=== PATIENT | female | born 1950 | race Caucasian/White ===

== ENCOUNTER → 2022-07-17 11:23 | Outpatient (BNVA) | payer MEDICARE, SELFPAY | PROVIDERS: PCP Nurse Practitioner Family; Visit Provider Nurse Practitioner Family | DX: I48.91 Unspecified atrial fibrillation (principal); E11.9 Type 2 diabetes mellitus without complications; K59.00 Constipation, unspecified; F41.9 Anxiety disorder, unspecified; E78.5 Hyperlipidemia, unspecified; J43.9 Emphysema, unspecified; I25.10 Atherosclerotic heart disease of native coronary artery without angina pectoris; J45.909 Unspecified asthma, uncomplicated; R51.9 Headache, unspecified; G89.29 Other chronic pain | CPT/HCPCS: 80053; 80061; 80162; 82607; 82728; 82746; 83036; 83550 ==

== ENCOUNTER 2022-08-05 12:58 | Emergency (ER) | payer MEDICARE, SELFPAY ==
[2022-08-05 13:06] VITALS: BP 120/75; PULSE 76; RESP 16; TEMP 36.6; O2SAT 97; BMI 19.3
--- NOTE | 2022-08-05 13:35 | W.ED.AMS ---
HPI - Altered Mental Status General: Chief Complaint: Altered Mental Status Stated Complaint: AMS Time Seen by Provider: 08/05/22 13:15 Source: patient Mode of arrival: EMS Limitations: no limitations History of Present Illness: This patient was transported via EMS to the hospital because of some concern was she had transient decreased responsiveness. The patient provides her history. EMS report was that she seemed to not respond her granddaughter and EMS arrived and found her to be at her normal state of health. Has been so since there interaction with her. Patient reports to me that she woke this morning did not feel much like eating her granddaughter eventually made her way to her home sister today and she had just taken one of her butalbital which she takes for her chronic headaches. She states that she felt sleepy but denied any other symptoms such as weakness, difficulty with speech etc. She states her headaches have been chronic and been treated with opiates as well as other modalities such as Botox and she is currently getting a new injectable once a month prophylactic therapy which she says helped some in the first part of the month but then trails off towards the end of the month. She states that she has recently had body aches and subjective fevers and that her great grandchildren have been sick with some sort of a virus from daycare prior to her becoming ill. She denies any nausea vomiting or diarrhea. She has had a bowel movement for 3 to 4 days but also has not eaten much. She states that she has no abdominal pain currently. Timing confirmed by: family member Associated symptoms: Deny depression Review of Systems Const: Reports: fever(s), body aches and change in appetite Eyes: Denies: change in vision or blurry vision ENMT: Denies: throat pain, odynophagia, nasal discharge, nasal congestion or nasal obstruction Card: Denies: chest pain, palpitations, syncope or pre-syncope Resp: Denies: dyspnea, productive cough or non-productive cough GI: Denies: abdominal pain, nausea, vomiting or diarrhea : Denies: flank pain, difficulty voiding, dysuria or urinary frequency Musc: Denies: neck pain, back pain, extremity pain or extremity swelling Skin/Breast: Denies: rash or pruritus Neuro: Reports: headache(s); Denies: behavioral changes, Slurred speech present or seizure-like activity Psych: Reports: anxiety; Denies: depression or mood swings Endo: Denies: polyuria or polydipsia PFSH ED PFSH: Medical History Chronic headaches Chronic pain Depression with anxiety GERD (gastroesophageal reflux disease) Gout Heart failure Hx of deep venous thrombosis Hyperlipidemia Irregular heartbeat Muscle spasm Pacemaker Surgical History History of shoulder replacement Family History Other Cancer Diabetes Hypertension Social History Smoking and tobacco status: never smoked Physical Exam Narrative: The patient is alert, makes good eye contact speech is goal-directed and fluent. Const: COMMON NORMALS: no acute distress, patient oriented x3 and no limitations GENERAL APPEARANCE: cooperative and comfortable NUTRITIONAL APPEARANCE: thin HENMT: COMMON NORMALS: normocephalic, atraumatic, Normal nasal mucous membranes and turbinates present, moist oral mucous membranes and oropharynx normal HEAD & SCALP: normocephalic and atraumatic; no scalp tenderness FACE & SINUS: normal facial exam and face symmetric NOSE: Normal nasal mucous membranes and turbinates present Eye: COMMON NORMALS: Equal, round and reactive pupils present, EOMs intact bilaterally and conjunctivae normal CONJUNCTIVA: Yes conjunctivae normal PUPIL: Yes Equal, round and reactive pupils present Neck/C-Spine: COMMON NORMALS: no lymphadenopathy, supple, no meningeal signs, Thyroid normal and No carotid bruits THYROID: Thyroid normal CERVICAL SPINE: Yes cervical ROM normal Resp: COMMON NORMALS: normal respiratory effort, No use of accessory muscles and clear to auscultation bilaterally AUSCULTATION: clear to auscultation bilaterally Cardio: COMMON NORMALS: regular rate, No gallops present (Cardio), No murmurs present (Cardio) and Peripheral pulses 2+ throughout RATE: regular rate PERIPHERAL PULSES: Peripheral pulses 2+ throughout GI: COMMON NORMALS: Normal to inspection, nondistended, normoactive bowel sounds present, Soft to palpation, non-tender, No hepatosplenomegaly present and no masses PALPATION: Yes Soft to palpation and Yes No hepatosplenomegaly present Back/Pelvis: COMMON NORMALS: thoracic and lumbar spine normal to inspection, no thoracic nor lumbar tenderness, thoraco-lumbar ROM normal and straight leg raise negative bilaterally Extremity: COMMON NORMALS: normal to inspection, full ROM, no joint enlargement, no clubbing, cyanosis or edema, no calf tenderness and no pedal edema Neuro: COMMON NORMALS: patient oriented x3, moves all extremities, no focal motor deficits, no sensory deficits noted and deep tendon reflexes 2+ bilaterally MENINGEAL SIGNS: Yes no meningeal signs CRANIAL NERVES: Yes CN normal except as noted SPEECH: speech normal Psych: COMMON NORMALS: mental status grossly normal Skin: COMMON NORMALS: no rashes or lesions noted, no wounds and turgor normal GENERAL SKIN EXAM: no rashes or lesions noted and turgor normal Course Reevaluation(s): Reevaluation #1: Patient is eating and drinking. I discussed her current findings to include her chronic anemia. She states she has hadAnemia for as long as she can remember. She also relates that she had bone cancer although she cannot specifically tell me whether she had multiple myeloma or what type of bone cancer etc. her IV fluids are infusing and I would like her to continue to get remainder of this IV fluids as she is somewhat volume depleted clinically as well as biochemically. Still waiting influenza testing but at this point no evidence of other ongoing clinical conditions that would suggest a ongoing emergency medical condition. Time: 15:18 Reevaluation #2: Patient states she is feeling much better. She is expressing desire to be discharged from the hospital. No new focal findings on repeat examination. She is alert, eating, drinking, her ancillary studies are stable and consistent with previous studies. Time: 16:06 Vital Signs: Vital signs: Vital Signs Temperature 97.8 F 08/05/22 13:06 Pulse Rate 76 08/05/22 13:06 Respiratory Rate 16 08/05/22 13:06 Blood Pressure 120/75 08/05/22 13:06 Pulse Oximetry 97 08/05/22 13:06 Oxygen Delivery Me thod 08/05/22 13:06 MDM - Altered Mental Status Medical Decision Making This patient was transported to the emergency department because of possible concerns about alteration in her mental status alleged by family members. Her clinical examination while in the emergency department was very reassuring. She displayed normal cognition and no focal findings on neurologic examination. Her history has been remarkable and that she has had viral syndrome symptoms for the last several days. She has not eaten normally although she states she has been taking fluids. She apparently has had grand great-grandchildren who have had similar symptoms around the home for the last few days. She reports that today she took a few barbital for her chronic headache right before the time when her granddaughter came by and she thinks that she may have been tired and sleepy and also had dry mouth that attributed to her presentation at the time her granddaughter saw her. She had a nonfocal and reassuring clinical examination and her laboratories revealed her chronic anemia which is essentially unchanged. She did display some findings that suggested some volume depletion and received IV fluids in addition to oral nutrition. Her past history is well-documented in her past medical record and that is probably a contributing factor to her current presentation as well. He displayed nothing in the way of concerning findings while in the emergency department and was comfortable with going home and I felt this is a reasonable plan. She has ready access to family members who care for her she is clinically stable. Medical Records I reviewed the patient's medical records. Lab Data I reviewed the patient's lab results. : 08/05/22 14:00 08/05/22 14:00 Laboratory Results WBC 2.7 10^3/uL (4.0-10.0) L 08/05/22 14:00 RBC 2.54 10^6/uL (4.1-5.3) L 08/05/22 14:00 Hgb 8.8 g/dL (11.5-15.3) L 08/05/22 14:00 Hct 27.2 % (37.0-47.0) L 08/05/22 14:00 MCV 107.1 fl (81-99) H 08/05/22 14:00 MCH 34.6 pg (28.0-34.0) H 08/05/22 14:00 MCHC 32.4 g/dL (30.0-36.0) 08/05/22 14:00 RDW 12.6 % (12.1-15.1) 08/05/22 14:00 Plt Count 152 10^3/cmm (130-400) 08/05/22 14:00 MPV 9.8 fL (7.4-10.4) 08/05/22 14:00 Neut % (Auto) 72.7 % 08/05/22 14:00 Lymph % (Auto) 15.7 % 08/05/22 14:00 Glynn % (Auto) 10.8 % 08/05/22 14:00 Eos % (Auto) 0.0 % 08/05/22 14:00 Baso % (Auto) 0.4 % 08/05/22 14:00 Neut # (Auto) 1.95 10^3/uL (1.8-7.7) 08/05/22 14:00 Lymph # (Auto) 0.4 10^3/uL (0.8-4.8) L 08/05/22 14:00 Glynn # (Auto) 0.3 10^3/uL (0.2-0.9) 08/05/22 14:00 Eos # (Auto) 0.0 10^3/uL (0.0-0.8) 08/05/22 14:00 Baso # (Auto) 0.0 10^3/uL (0.0-0.1) 08/05/22 14:00 Nucleated RBC % (auto) 0 % 08/05/22 14:00 Nucleated RBCs # 0.0 /100WBC 08/05/22 14:00 Sodium 133 mmol/L (136-145) L 08/05/22 14:00 Potassium 4.0 mmol/L (3.5-5.1) 08/05/22 14:00 Chloride 95 mmol/L (98-107) L 08/05/22 14:00 Carbon Dioxide 29 mmol/L (22-29) 08/05/22 14:00 Anion Gap 13.0 (5-19) 08/05/22 14:00 BUN 28 mg/dL (8-23) H 08/05/22 14:00 Creatinine 1.3 mg/dL (0.5-0.9) H 08/05/22 14:00 GFR Calculation Not Reportable 08/05/22 14:00 Glucose 78 mg/dL (65-115) 08/05/22 14:00 Calculated Osmolality 280 mOsm/kg (285-295) L 08/05/22 14:00 Calcium 8.2 mg/dL (8.5-10.5) L 08/05/22 14:00 Total Bilirubin 0.5 mg/dL (0.15-1.2) 08/05/22 14:00 AST 19 U/L (0-32) 08/05/22 14:00 ALT 15 U/L (0-33) 08/05/22 14:00 Alkaline Phosphatase 86 U/L (35-105) 08/05/22 14:00 Total Protein 5.6 g/dL (6.6-8.7) L 08/05/22 14:00 Albumin 2.7 g/dL (3.5-5.2) L 08/05/22 14:00 Globulin 2.9 g/dL (1.3-4.6) 08/05/22 14:00 Influenza Type A Ag negative (Negative) 08/05/22 15:14 Influenza Type B Ag negative (Negative) 08/05/22 15:14 EKG Data EKG 1: I personally reviewed and interpreted this EKG as follows: Interpretation: Patient has a paced rhythm of 66 bpm. No other acute changes noted at this time. No prior tracings available for comparison. Discharge Plan Discharge Patient Disposition: Home Clinical Impression: Chronic headaches, Chronic anemia, Fluid volume depletion, Acute viral syndrome Condition: Stable Prescriptions: No Action oxycodone-acetaminophen 7.5-325 mg tablet 1 tab PO Q6H PRN amlodipine 10 mg tablet 10 mg PO DAILY 90 Days Qty: 90 1RF atorvastatin 20 mg tablet 20 mg PO DAILY 90 Days Qty: 90 1RF buspirone 10 mg tablet 10 mg PO BID 90 Days Qty: 180 1RF Qulipta 60 mg tablet 60 mg PO DAILY 90 Days Qty: 90 1RF Emgality Syringe 120 mg/mL syringe 120 mg SUBCUT .Qmonth 30 Days Qty: 1 3RF akzeaqohic-gtpejevmmypux-bqqp 50-325-40 mg tablet 1 tab PO Q4H PRN (Reason: pain) 30 Days Qty: 90 3RF Rx Instructions: 1 TABLET AT ONSET OF HEADACHE,MAY REPEAT IN 4 HOUR.NO MORE THE 2 DOSES 24 HOURS. carvedilol 25 mg tablet 25 mg PO Q12H 90 Days Qty: 180 1RF Rx Instructions: must administer with a meal/food clopidogrel 75 mg tablet 75 mg PO DAILY 90 Days Qty: 90 1RF colchicine 0.6 mg tablet 0.6 mg PO DAILY PRN (Reason: gout) Qty: 90 0RF digoxin 125 mcg (0.125 mg) tablet 125 mcg PO DAILY 90 Days Qty: 90 1RF diltiazem HCl 180 mg capsule,extended release 24 hr 180 mg PO DAILY 90 Days Qty: 90 1RF famotidine [Acid Risk Consultant (famotidine)] 20 mg tablet 20 mg PO BID 90 Days Qty: 180 1RF flecainide 50 mg tablet 50 mg PO Q12H 90 Days Qty: 180 1RF hydralazine 25 mg tablet 25 mg PO DAILY 90 Days Qty: 90 1RF methocarbamol 500 mg tablet 500 mg PO BID 90 Days Qty: 180 1RF nortriptyline 75 mg capsule 75 mg PO .HS 90 Days Qty: 90 1RF albuterol sulfate [Ventolin HFA] 90 mcg/actuation HFA aerosol inhaler 2 puff inhalation 6XD PRN (Reason: shortness of breath or wheezing) Qty: 8.5 6RF budesonide-formoterol [Symbicort] 160-4.5 mcg/actuation HFA aerosol inhaler 2 puff inhalation BID Qty: 10.2 6RF furosemide [Lasix] 20 mg tablet 20 mg PO QAM 90 Days Qty: 90 1RF spironolactone 25 mg tablet 25 mg PO DAILY 90 Days Qty: 90 1RF pantoprazole [Protonix] 40 mg tablet,delayed release (DR/EC) 40 mg PO DAILY 90 Days Qty: 90 1RF fluticasone propionate [Flonase Allergy Relief] 50 mcg/actuation spray,suspension 1 spray intranasal Q12H Qty: 16 3RF Rx Instructions: administer into each nostril Linzess 72 mcg capsule 72 mcg PO QAM 90 Days Qty: 90 1RF lidocaine 5 % adhesive patch,medicated 1 patch topical DAILY 30 Days Qty: 30 6RF Rx Instructions: leave on most painful area for up to 12 hrs (DME) ADMIT TO [facility] See Rx Instructions .Route .MEDSUPPLY Qty: 1 0RF Rx Instructions: REQUEST PER PT AND FAMILY ferrous sulfate 325 mg (65 mg iron) tablet 325 mg PO BID 90 Days Qty: 180 1RF Discharge Orders: Discharge ED (Routine); Ordered 08/05/22 Ordered By: Dwayne Hendrix Referrals: Steffany Barahona NP [Primary Care Provider] - Discharge Diet: Advance as tolerated Discharge Activity: Increase activity as tolerated Patient Instructions: Opioid Safety, Pain Management Activity Restrictions/Additional Instructions: Continue all your usual medications. Ensure you are drinking at least 2 quarts of fluids daily. Increase your intake of solid food as tolerated. Should you develop any chest pain, shortness of breath, nausea, vomiting, fevers, change in her headache, global weakness etc. return to this or the nearest emergency department. Coding Level of Care Code ED Conversion Developer for Zach Scott Exam Comprehensive
[2022-08-05 14:04] LABS: Basophils % 0.4 %; Hematocrit 27.2 % (37.0-47.0); Hemoglobin 8.8 g/dL (11.5-15.3); Lymphocytes # 0.4 10^3/uL (0.8-4.8); Lymphocytes % 15.7 %; Mean Corpuscular HGB Conc 32.4 g/dL (30.0-36.0); Mean Corpuscular Hemoglobin 34.6 pg (28.0-34.0); Mean Corpuscular Volume 107.1 fl (81-99); Mean Platelet Volume 9.8 fL (7.4-10.4); Monocytes # 0.3 10^3/uL (0.2-0.9); Monocytes % 10.8 %; Neutrophils # 1.95 10^3/uL (1.8-7.7); Neutrophils % 72.7 %; Nucleated Red Blood Cells % 0 %; Platelet Count 152 10^3/cmm (130-400); Red Blood Count 2.54 10^6/uL (4.1-5.3); Red Cell Distribution Width 12.6 % (12.1-15.1); White Blood Count 2.7 10^3/uL (4.0-10.0)
--- NOTE | 2022-08-05 14:16 | ECG_ITS ---
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 Measurements Intervals [place] Rate: 66 P: 254 GA: 338 QRS: 69 QRSD: 97 T: 69 QT: 368 QTc: 388 Interpretive Statements ELECTRONIC ATRIAL PACEMAKER NONSPECIFIC ST & T-WAVE ABNORMALITY ABNORMAL RHYTHM ECG No previous ECG available for comparison Electronically Signed On 08-05-2022 15:34:43 AGRICULTURE CONSULTANT by Rick Hernandez M.D. [email or web address] hospital.[employer]/store/[id number]
[2022-08-05 14:21] LABS: Alanine Aminotransferase 15 U/L (0-33); Albumin Level 2.7 g/dL (3.5-5.2); Alkaline Phosphatase 86 U/L (35-105); Aspartate Amino Transferase 19 U/L (0-32); Blood Urea Nitrogen 28 mg/dL (8-23); Calcium 8.2 mg/dL (8.5-10.5); Carbon Dioxide 29 mmol/L (22-29); Chloride 95 mmol/L (98-107); Globulin 2.9 g/dL (1.3-4.6); Glucose 78 mg/dL (65-115); Osmolality Calculated 280 mOsm/kg (285-295); Sodium 133 mmol/L (136-145); Total Bilirubin 0.5 mg/dL (0.15-1.2); Total Protein 5.6 g/dL (6.6-8.7)
[2022-08-05] MEDS: lactated ringers 1,000 ML 999 ML IV (14:26)
[2022-08-05 15:55] LABS: Influenza A by IFA negative (Negative); Influenza B by IFA negative (Negative)
== END 2022-08-05 17:52 | disposition home or self-care (01) ==
PROVIDERS: Emergency Provider Emergency Medicine; PCP Nurse Practitioner Family
DX: B34.9 Viral infection, unspecified (principal); E86.9 Volume depletion, unspecified; D64.89 Other specified anemias; R51.9 Headache, unspecified; Z79.02 Long term (current) use of antithrombotics/antiplatelets; I50.9 Heart failure, unspecified; E78.5 Hyperlipidemia, unspecified; Z95.0 Presence of cardiac pacemaker
CPT/HCPCS: 36415; 80053; 85025; 87804; 93005; 96360; 96361; 99284; J2060; J7120

== ENCOUNTER → 2022-08-10 12:50 | Outpatient (BNVA) | payer MEDICARE, SELFPAY | PROVIDERS: PCP Nurse Practitioner Family; Visit Provider Nurse Practitioner Family | DX: J06.9 Acute upper respiratory infection, unspecified (principal); I13.0 Hypertensive heart and chronic kidney disease with heart failure and stage 1 through stage 4 chronic kidney disease, or unspecified chronic kidney disease; N18.9 Chronic kidney disease, unspecified; I50.9 Heart failure, unspecified; G89.29 Other chronic pain; D63.1 Anemia in chronic kidney disease | CPT/HCPCS: 80053 ==

== ENCOUNTER 2022-08-21 13:48 | Inpatient (IN) | payer SELFPAY ==
[2022-08-21] VITALS (99 sets, daily range): BP systolic 68–171; BP diastolic 41–73; PULSE 56–74; RESP 14–18; TEMP 35; O2SAT 96–100
--- NOTE | 2022-08-21 13:52 | XR_ITS ---
WS: [id number] XR chest 1V portable [id number] REASON FOR EXAM: post code FINDINGS: Endotracheal tube tip about 1 cm superior to the aortic arch. Right subclavian central venous line with the tip in the distal SVC. Pacemaker place over the left chest with leads to the right atrium and right ventricular apex. The na sogastric tube is doubled upon itself in the body of the stomach. The heart is not significantly enlarged. There is no pneumothorax both lungs clear and well inflated. XR/XR chest 1V portable [id number] IMPRESSION: Post Covid chest x-ray with no acute cardiopulmonary abnormality. Devices are properly positioned. The nasogastric tube is in a redundant positio n and could be withdrawn 14 cm and remain within the stomach.
--- NOTE | 2022-08-21 13:53 | ECG_ITS ---
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 Measurements Intervals [place] Rate: 85 P: 251 [place]: 268 QRS: -86 QRSD: 110 T: 94 QT: 393 QTc: 468 Interpretive Statements 100% AV paced rhythm. Wide QRS complexes Consider electrolyte normalities /drug effect /ischemia further interpretation is not possible. Electronically Signed On 08-21-2022 14:54:49 POWER LINE LINEMAN by Rick Hernandez M.D. [email or web address] system [email or web address] [email or web address]/store/[id number] f
[2022-08-21 13:56] LABS: ABG PH Result 7.16 (7.35-7.45); Arterial Blood Gas Hematocrit 29.6 % (37-47); Blood Gas Allen Test Pos; Blood Gas Operator Identificat MONRO; Blood Gas Sample Site Brachial, right; Blood Gas Sample Type Arterial; HCO3 ABG 10.3 mmol/L (22-26); Oxygen Device AMBU
[2022-08-21] MEDS: sodium bicarbonate 8.4% 1 mEq/mL 50mL Syr 100 MEQ IVP (14:02)
[2022-08-21 14:26] LABS: Basophils % 0.2 %; Eosinophils % 0.1 %; Hematocrit 28.8 % (37.0-47.0); Hemoglobin 9.3 g/dL (11.5-15.3); Lymphocytes # 1.5 10^3/uL (0.8-4.8); Lymphocytes % 18.2 %; Mean Corpuscular HGB Conc 32.3 g/dL (30.0-36.0); Mean Corpuscular Hemoglobin 33.9 pg (28.0-34.0); Mean Corpuscular Volume 105.1 fl (81-99); Mean Platelet Volume 10.3 fL (7.4-10.4); Monocytes # 0.2 10^3/uL (0.2-0.9); Monocytes % 2.7 %; Neutrophils # 6.26 10^3/uL (1.8-7.7); Neutrophils % 76.8 %; Nucleated Red Blood Cells % 0 %; Platelet Count 83 10^3/cmm (130-400); Red Blood Count 2.74 10^6/uL (4.1-5.3); Red Cell Distribution Width 13.1 % (12.1-15.1); White Blood Count 8.2 10^3/uL (4.0-10.0)
--- NOTE | 2022-08-21 14:29 | PC.NURSE ---
daughter contacted, she is heading this way from [place].
[2022-08-21 14:38] LABS: INR 1.41 (0.8-1.2)
[2022-08-21 14:39] LABS: Partial Thromboplastin Time 48.2 SECONDS (23.9-36.7)
--- NOTE | 2022-08-21 14:44 | PC.PHAR ---
PT UNABLE TO VERIFY- PT IS A RESUSCITATION- DR SEBASTIAN ADVISED IT WAS OK TO DO EXTERNAL MED LIST LAST FILLED/DS
[2022-08-21 14:53] LABS: Lactate (Lactic Acid level) 12.2 mmol/L (0.5-2.2); Troponin(5th) Baseline 213 ng/L (0-10)
[2022-08-21 14:57] LABS: Alanine Aminotransferase 32 U/L (0-33); Albumin Level 2.1 g/dL (3.5-5.2); Alkaline Phosphatase 120 U/L (35-105); Anion Gap 28.4 (5-19); Blood Urea Nitrogen 44 mg/dL (8-23); Calcium 7.5 mg/dL (8.5-10.5); Carbon Dioxide 20 mmol/L (22-29); Chloride 93 mmol/L (98-107); Globulin 2.5 g/dL (1.3-4.6); Glucose 156 mg/dL (65-115); Magnesium 2.4 mg/dL (1.7-2.3); NT Pro B Type Natriuretic Pept 30517 pg/mL (0-125); Osmolality Calculated 298 mOsm/kg (285-295); Potassium 4.4 mmol/L (3.5-5.1); Sodium 137 mmol/L (136-145); Total Bilirubin 0.5 mg/dL (0.15-1.2); Total Protein 4.6 g/dL (6.6-8.7)
[2022-08-21] MEDS: sodium chloride 0.9% 1,000 ML 125 ML IV ×2 (14:58→18:35)
[2022-08-21] MEDS: propofol 1,000 MG/100 ML INJ 1.61 MG IV (15:00)
[2022-08-21 15:04] LABS: Aspartate Amino Transferase 65 U/L (0-32)
[2022-08-21 15:06] LABS: ABG PCO2 26.1 mmHg (35-45); ABG PH Result 7.48 (7.35-7.45); Alveolar-Arterial Oxygen Gradi 5.9 mmHg (5-10); Base Excess ABG -2.9 mmol/L (-2.0-2.0); Blood Gas Allen Test Pos; Blood Gas Operator Identificat CAK; Blood Gas Sample Site Brachial, left; Blood Gas Sample Type Arterial; Carboxyhemoglobin 0.9 %THgb (0.4-20.1); HCO3 ABG 19.6 mmol/L (22-26); HGB O2 Sat 98.3 % (95-100); Methemoglobin 1.1 % (0.4-1.5); Oxygen Device VENT; Oxygen Saturation ABG > 100.0; Potassium Level - ABG 4.5 mmol/L (3.5-5.0); Total Hemoglobin 9.5 g/dL (12-16)
--- NOTE | 2022-08-21 15:19 | W.ED.GENADLT ---
HPI - General Adult General: Chief complaint: Cardiac Arrest/CPR Stated complaint: cardiac arrest Time Seen by Provider: 08/21/22 13:51 Source: EMS Mode of arrival: EMS History of Present Illness: 72-year-old female presents emergency room from [facility]. Home health was assisting with a bath when she began to difficulty breathing became altered with slow heart rate. In EMS arrived heart rate was in the 40s she had a witnessed arrest while in the EMS truck. She went into V. fib CPR was started. Patient converted to V. tach and was defibrillated at 250 J CPR was resumed she was given 9 doses of epi and an IO had been started second defibrillation was at 200 J just prior to arrival. On arrival in the emergency room department patient was on automated compression device. When that was removed she was found to have a palpable pulse with ROSC. Initial systolic blood pressures were in the 180s she was nonresponsive. Onset (ago): minute(s) Treatments prior to arrival: other (ACLS protocols with 9 epi, 2 defibrillations 101 51-200) Review of Systems General: Reports: ROS unobtainable due to endotracheal tube PFSH ED PFSH: Medical History Chronic headaches Chronic pain Depression with anxiety GERD (gastroesophageal reflux disease) Gout Heart failure Hx of deep venous thrombosis Hyperlipidemia Irregular heartbeat Muscle spasm Pacemaker Surgical History History of shoulder replacement Family History Other Cancer Diabetes Hypertension Social History Smoking and tobacco status: never smoked Physical Exam HENMT: COMMON NORMALS: normocephalic, atraumatic and hearing grossly normal bilaterally HEAD & SCALP: normocephalic and atraumatic Resp: COMMON NORMALS: normal respiratory effort, No retractions, No use of accessory muscles and clear to auscultation bilaterally AUSCULTATION: clear to auscultation bilaterally Cardio: COMMON NORMALS: No murmurs present (Cardio) RATE: bradycardic GI: COMMON NORMALS: Soft to palpation and No hepatosplenomegaly present AUSCULTATION: Yes normoactive bowel sounds PALPATION: Yes Soft to palpation, No Tenderness to palpation present (GI), No Guarding due to palpation present (GI) and Yes No hepatosplenomegaly present Extremity: COMMON NORMALS: normal to inspection, capillary refill normal, no clubbing, cyanosis or edema, no calf tenderness and no pedal edema Skin: COMMON NORMALS: no rashes or lesions noted GENERAL SKIN EXAM: no rashes or lesions noted Procedures Central Line Placement Right SC: Time Out Performed: Yes MD Prep: mask, gown and gloves Central Line Prep: Chlorhexidine scrub Ultrasound Used for Placement: Yes Central Line Lumen Inserted: triple Post Procedure: sutured in place, good blood return, all ports aspirated, flushed, capped and sterile dressing applied Patient Tolerated Procedure: well Course Vital Signs: Vital signs: Vital Signs Pulse Rate 71 08/21/22 13:50 Respiratory Rate 14 08/21/22 15:23 Blood Pressure 171/73 08/21/22 13:50 Pulse Oximetry 96 08/21/22 13:50 Oxygen Delivery Me thod 08/21/22 13:50 Fraction of Inspir ed Oxygen 30 08/21/22 15:23 MDM - General Adult Medical Decision Making Patient brought in as cardiac arrest had ROSC on arrival here. Patient stabilized EKG shows paced rhythm chest x-ray done after placement of central line and OG all tubes are in good position. Family reports patient was exposed to COVID and flu just prior to this COVID and flu swabs have been done she has been started on Levophed we will admit to the ICU family wishes to continue to be a full code discussed with therapy orders written Medical Records I reviewed the patient's medical records. Lab Data I reviewed the patient's lab results. 08/21/22 14:10 08/21/22 14:10 Radiology Impressions Chest X-Ray 08/21/22 13:52 IMPRESSION: Post Covid chest x-ray with no acute cardiopulmonary abnormality. Devices are properly positioned. The nasogastric tube is in a redundant position and could be withdrawn 14 cm and remain within the stomach. Laboratory Results WBC 8.2 10^3/uL (4.0-10.0) 08/21/22 14:10 RBC 2.74 10^6/uL (4.1-5.3) L 08/21/22 14:10 Hgb 9.3 g/dL (11.5-15.3) L 08/21/22 14:10 Hct 28.8 % (37.0-47.0) L 08/21/22 14:10 MCV 105.1 fl (81-99) H 08/21/22 14:10 MCH 33.9 pg (28.0-34.0) 08/21/22 14:10 MCHC 32.3 g/dL (30.0-36.0) 08/21/22 14:10 RDW 13.1 % (12.1-15.1) 08/21/22 14:10 Plt Count 83 10^3/cmm (130-400) L 08/21/22 14:10 MPV 10.3 fL (7.4-10.4) 08/21/22 14:10 Neut % (Auto) 76.8 % 08/21/22 14:10 Lymph % (Auto) 18.2 % 08/21/22 14:10 Fannin % (Auto) 2.7 % 08/21/22 14:10 Eos % (Auto) 0.1 % 08/21/22 14:10 Baso % (Auto) 0.2 % 08/21/22 14:10 Neut # (Auto) 6.26 10^3/uL (1.8-7.7) 08/21/22 14:10 Lymph # (Auto) 1.5 10^3/uL (0.8-4.8) 08/21/22 14:10 Fannin # (Auto) 0.2 10^3/uL (0.2-0.9) 08/21/22 14:10 Eos # (Auto) 0.0 10^3/uL (0.0-0.8) 08/21/22 14:10 Baso # (Auto) 0.0 10^3/uL (0.0-0.1) 08/21/22 14:10 Nucleated RBC % (auto) 0 % 08/21/22 14:10 Nucleated RBCs # 0.0 /100WBC 08/21/22 14:10 PT 17.60 SECONDS (12.1-14.9) H 08/21/22 14:10 INR 1.41 (0.8-1.2) H 08/21/22 14:10 APTT 48.2 SECONDS (23.9-36.7) H 08/21/22 14:10 Specimen Type Arterial 08/21/22 14:55 Sample Site Brachial, left 08/21/22 14:55 ABG pH 7.48 (7.35-7.45) H 08/21/22 14:55 ABG pCO2 26.1 mmHg (35-45) L 08/21/22 14:55 ABG pO2 201.0 mmHg (80.0-100.0) H 08/21/22 14:55 ABG HCO3 19.6 mmol/L (22-26) L 08/21/22 14:55 ABG O2 Saturation > 100.0 08/21/22 14:55 ABG Base Excess -2.9 mmol/L (-2.0-2.0) L 08/21/22 14:55 Ovi Test Pos 08/21/22 14:55 A-a O2 Gradient 5.9 mmHg (5-10) 08/21/22 14:55 Hematocrit 29.0 % (37-47) L 08/21/22 14:55 Hgb O2 Saturation 98.3 % (95-100) 08/21/22 14:55 Carboxyhemoglobin 0.9 %THgb (0.4-20.1) 08/21/22 14:55 Methemoglobin 1.1 % (0.4-1.5) 08/21/22 14:55 Total Hemoglobin 9.5 g/dL (12-16) L 08/21/22 14:55 Sodium 137.0 mmol/L (131-143) 08/21/22 14:55 Potassium 4.5 mmol/L (3.5-5.0) 08/21/22 14:55 Glucose 160.0 mg/dL (70-115) H 08/21/22 14:55 Ionized Calcium 1.0 mmol/L (1.1-1.4) L 08/21/22 14:55 O2 Delivery Device Vent 08/21/22 14:55 O2 Liters/Min 15.0 % 08/21/22 13:43 FiO2 40.0 % 08/21/22 14:55 Tidal Volume 0.40 08/21/22 14:55 PEEP 5.0 cmH20 08/21/22 14:55 Document Improvement Specialist ID Cak 08/21/22 14:55 Sodium 137 mmol/L (136-145) 08/21/22 14:10 Potassium 4.4 mmol/L (3.5-5.1) 08/21/22 14:10 Chloride 93 mmol/L (98-107) L 08/21/22 14:10 Carbon Dioxide 20 mmol/L (22-29) L 08/21/22 14:10 Anion Gap 28.4 (5-19) H 08/21/22 14:10 BUN 44 mg/dL (8-23) H 08/21/22 14:10 Creatinine 2.0 mg/dL (0.5-0.9) H 08/21/22 14:10 GFR Calculation Not Reportable 08/21/22 14:10 Glucose 156 mg/dL (65-115) H 08/21/22 14:10 Calculated Osmolality 298 mOsm/kg (285-295) H 08/21/22 14:10 Lactate 12.2 mmol/L (0.5-2.2) H* 08/21/22 14:10 Calcium 7.5 mg/dL (8.5-10.5) L 08/21/22 14:10 Magnesium 2.4 mg/dL (1.7-2.3) H 08/21/22 14:10 Total Bilirubin 0.5 mg/dL (0.15-1.2) 08/21/22 14:10 AST 65 U/L (0-32) H 08/21/22 14:10 ALT 32 U/L (0-33) 08/21/22 14:10 Alkaline Phosphatase 120 U/L (35-105) H 08/21/22 14:10 Troponin T Baseline 213 ng/L (0-10) H* 08/21/22 14:10 NT-Pro-B Natriuret Pep 16696 pg/mL (0-125) H 08/21/22 14:10 Total Protein 4.6 g/dL (6.6-8.7) L 08/21/22 14:10 Albumin 2.1 g/dL (3.5-5.2) L 08/21/22 14:10 Globulin 2.5 g/dL (1.3-4.6) 08/21/22 14:10 Critical Care Time Critical Care Time: Critical Care Time: Yes Total Critical Care Time: 45 Attestation: The high probability of a clinically significant, sudden or life threatening deterioration of the patient's cardiovascular respiratory system(s) required my full and direct attention, intervention and personal management. The critical care time is as shown. This time is in addition to time spent performing any reported procedures but includes the following: [x] Data and vital sign review and interpretation [x] Patient assessment, examination and intervention [x] Documentation [x] Medication orders and management Discharge Plan Discharge Condition: Stable Prescriptions: No Action oxycodone-acetaminophen 7.5-325 mg tablet 1 tab PO Q6H PRN (Reason: Pain) amlodipine 10 mg tablet 10 mg PO DAILY 90 Days Qty: 90 1RF atorvastatin 20 mg tablet 20 mg PO DAILY 90 Days Qty: 90 1RF buspirone 10 mg tablet 10 mg PO BID 90 Days Qty: 180 1RF clopidogrel 75 mg tablet 75 mg PO DAILY 90 Days Qty: 90 1RF colchicine 0.6 mg tablet 0.6 mg PO DAILY PRN (Reason: gout) Qty: 90 0RF digoxin 125 mcg (0.125 mg) tablet 125 mcg PO DAILY 90 Days Qty: 90 1RF diltiazem HCl 180 mg capsule,extended release 24 hr 180 mg PO DAILY 90 Days Qty: 90 1RF famotidine [Acid Incident Engineer (famotidine)] 20 mg tablet 20 mg PO BID 90 Days Qty: 180 1RF flecainide 50 mg tablet 50 mg PO Q12H 90 Days Qty: 180 1RF hydralazine 25 mg tablet 25 mg PO DAILY 90 Days Qty: 90 1RF methocarbamol 500 mg tablet 500 mg PO BID 90 Days Qty: 180 1RF nortriptyline 75 mg capsule 75 mg PO .HS 90 Days Qty: 90 1RF albuterol sulfate [Ventolin HFA] 90 mcg/actuation HFA aerosol inhaler 2 puff inhalation 6XD PRN (Reason: shortness of breath or wheezing) Qty: 8.5 6RF budesonide-formoterol [Symbicort] 160-4.5 mcg/actuation HFA aerosol inhaler 2 puff inhalation BID Qty: 10.2 6RF furosemide [Lasix] 20 mg tablet 20 mg PO QAM 90 Days Qty: 90 1RF spironolactone 25 mg tablet 25 mg PO DAILY 90 Days Qty: 90 1RF pantoprazole [Protonix] 40 mg tablet,delayed release (DR/EC) 40 mg PO DAILY 90 Days Qty: 90 1RF fluticasone propionate [Flonase Allergy Relief] 50 mcg/actuation spray,suspension 1 spray intranasal Q12H Qty: 16 3RF Rx Instructions: administer into each nostril Linzess 72 mcg capsule 72 mcg PO QAM 90 Days Qty: 90 1RF gkjqgjofts-nwdzojissrkvr-kitb 50-325-40 mg tablet 1 tab PO Q4H PRN (Reason: pain) 30 Days Qty: 90 3RF Rx Instructions: 1 TABLET AT ONSET OF HEADACHE,MAY REPEAT IN 4 HOUR.NO MORE THE 2 DOSES 24 HOURS. carvedilol 25 mg tablet 25 mg PO Q12H 90 Days Qty: 180 1RF Rx Instructions: must administer with a meal/food tramadol 100 mg tablet 100 mg PO TID PRN (Reason: pain) 30 Days Qty: 90 0RF ferrous sulfate 325 mg (65 mg iron) tablet 325 mg PO BID 90 Days Qty: 180 1RF Emgality Pen 120 mg/mL pen injector 120 mg SUBCUT Q30D Referrals: Steffany Barahona NP [Primary Care Provider] - Coding Level of Care Code ED Air Route Traffic Controller for Chg Fwd Exam Detailed
[2022-08-21 15:48] LABS: Glucose Urine UA Norm (Normal); Ketones Urine 1+ (Negative); Protein Urine Neg (Negative); Urine Appearance Clear (CLEAR); Urine Color Yellow (Yellow); pH Urine 5 (5-7)
[2022-08-21 15:49] LABS: Add Urine Microscopic? YES; Bilirubin Urine 1+ (Negative); Blood Urine Neg (Negative); Leukocyte Esterase Urine 2+ (Negative); Nitrate Urine Negative (Negative); RBC Urine 0-4 /hpf (0-2); Urobilinogen Urine 1 mg/dL (Negative)
[2022-08-21 15:50] LABS: Add Urine Culture? Yes; Bacteria Urine 2+ /hpf; Hyaline Casts Urine 0-4 /lpf; Renal Epithelial Cells Urine 0-4 /hpf
--- NOTE | 2022-08-21 16:19 | CTR_ITS ---
PROCEDURE INFORMATION: Exam: CTA Chest With Contrast Exam date and time: 08/21/2022 4:58 PM Age: 72 years old Clinical indication: Other: S/P cardiac arrest; Additional info: Cardiac arrest, evaluate for pe TECHNIQUE: Imaging protocol: Computed tomographic angiography of the chest with contrast. 3D rendering (Not supervised by radiologist): MIP and/or 3D reconstructed images were created by the technologist. Radiation optimization: All CT scans at this facility use at least one of these dose optimization techniques: automated exposure control; mA and/or kV adjustment per patient size (includes targeted exams where dose is matched to clinical indication); or iterative reconstruction. Contrast material: OMNIPAQU; Contrast volume: 95 ml; Contrast route: INTRAVENOUS (IV); COMPARISON: CR XR chest 1V portable [id number] 08/21/2022 3:31 PM RADIATION DOSE METRICS: Total DLP (mGy-cm): 294.19 FINDINGS: Tubes, catheters and devices: The nasogastric tube is appropriately positioned with the tip in the stomach, well beyond the diaphragmatic hiatus. The endotracheal tube is appropriately positioned in the distal thoracic trachea with the tip above the kimberley. Pulmonary arteries: The pulmonary arteries are adequately opacified for evaluation to the subsegmental level. There is no filling defect to suggest embolism. Aorta: There is moderate aortic atherosclerotic disease. Lungs: There is no consolidation. There is subsegmental atelectasis in the left lung. Pleural spaces: There is no pleural effusion or pneumothorax. Heart: Heart size is normal. There is no pericardial effusion. There is moderate coronary artery calcification. Lymph nodes: Unremarkable. No enlarged lymph nodes. Adrenal glands: The adrenal glands are hypertrophic bilaterally. Bones/joints: Bilateral shoulder arthroplasty noted. There are displaced fractures of the right anterior 2nd and 3rd ribs. There are nondisplaced fractures of the right anterior 4th, 5th and 6th ribs. There are nondisplaced fractures of the left anterior 3rd through 6th ribs. Soft tissues: The extrathoracic soft tissues are unremarkable. CT/CT angio chest PE protcl [id number] IMPRESSION: 1. No pulmonary embolism. 2. Right 2nd through 6th and left 3rd through 6th anterior rib fractures. 3. Satisfactory lines and tubes.
--- NOTE | 2022-08-21 16:19 | CTR_ITS ---
PROCEDURE INFORMATION: Exam: CT Head Without Contrast Exam date and time: 08/21/2022 4:54 PM Age: 72 years old Clinical indication: Other: S/P code; Additional info: AMS, evalute for stroke, S/P cardiac arrest TECHNIQUE: Imaging protocol: Computed tomography of the head without contrast. Radiation optimization: All CT scans at this facility use at least one of these dose optimization techniques: automated exposure control; mA and/or kV adjustment per patient size (includes targeted exams where dose is matched to clinical indication); or iterative reconstruction. COMPARISON: No relevant prior studies available. RADIATION DOSE METRICS: Total DLP (mGy-cm): 1028.09 FINDINGS: Brain: Mild diffuse white matter disease likely reflecting chronic microvascular ischemic changes. Cerebral ventricles: No ventriculomegaly. Paranasal sinuses: Right paranasal sinus mucosal thickening. Mastoid air cells: Visualized mastoid air cells are well aerated. Bones/joints: Unremarkable. No acute fracture. Soft tissues: Unremarkable. CT/CT head wo con* [id number] IMPRESSION: 1. Mild diffuse white matter disease likely reflecting chronic microvascular ischemic changes. 2. Right paranasal sinus mucosal thickening. 3. Negative for intracranial hemorrhage or mass effect.
[2022-08-21 16:38] LABS: Troponin 5 2HR 253.1 ng/L (0-10); Troponin 5 2HR Delta 40.1 ABS# (0-10)
--- NOTE | 2022-08-21 16:38 | ECG_ITS ---
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 Measurements Intervals [place] Rate: 60 P: 240 KS: 177 QRS: -84 QRSD: 162 T: 80 QT: 495 QTc: 495 Interpretive Statements ELECTRONIC ATRIAL PACEMAKER ELECTRONIC VENTRICULAR PACEMAKER ABNORMAL RHYTHM ECG Compared to ECG 08/21/2022 13:52:35 AV dual-paced complex(es) or rhythm no longer present Electronically Signed On 08-22-2022 0:14:09 BUSINESS EXCELLENCE LEADER by Rick Hernandez M.D. [id number]
[2022-08-21 17:15] LABS: Digoxin 5.5 ng/mL (0.6-1.2)
--- NOTE | 2022-08-21 17:29 | USCV_ITS ---
Paula Leonardo Age: 72 Gender: F : 1950 Exam Date: 08/21/2022 18:03 Ordering Phys: Marina Rene MD Technologist: FELIBERTO Exam Location: [facility] [place] Indication: Vfib cardiac arrest s/p shock x 2. Pt on vent in ICU-7. Pt has pacer. BP: 117 / 51 HR: 65 Rhythm: Atrial fibrillation Technical Quality: Adequate MEASUREMENTS (Male / Female) Normal Values 2D ECHO LV Diastolic Diameter PLAX 3.1 cm 4.2 - 5.9 / 3.9 - 5.3 cm LV Systolic Diameter PLAX 1.8 cm IVS Diastolic Thickness 1.6 cm 0.6 - 1.0 / 0.6 - 0.9 cm IVS Systolic Thickness 1.8 cm LVPW Diastolic Thickness 1.2 cm 0.6 - 1.0 / 0.6 - 0.9 cm LVPW Systolic Thickness 1.3 cm LVOT Diameter 1.6 cm LV Ejection Fraction 2D Teich 76.6 % LV Ejection Fraction MOD 2C 81.3 % LV Ejection Fraction 2C AL 84.3 % LA Diameter 4.3 cm LA Width 4.4 cm LA Height 4.9 cm RA Width 3.2 cm RA Height 5.3 cm Aorta at Sinotubular Diameter 2.1 cm IVC Diameter 1.9 cm M-MODE Aortic Annulus Diameter 3.6 cm LA Ao Ratio MM 1.1 MV E Point Septal Separation 0.3 cm DOPPLER AV Peak Velocity 195.0 cm/s LVOT Peak Velocity 407.0 cm/s AV Area Cont Eq vti 3.9 cm squared AV Area Cont Eq pk 4.4 cm squared MV Area PHT 2.5 cm squared MV E' Velocity 40.0 cm/s Mitral E to MV E' Ratio 11.6 Mitral E to LV E' Lateral Ratio 9.4 Mitral E to LV E' Septal Ratio 14.9 TR Peak Velocity 272.5 cm/s TR Peak Gradient 29.7 mmHg TV Peak E Velocity 53.0 cm/s Right Atrial Pressure 10.0 mmHg Pulmonary Artery Systolic Pressu 39.7 mmHg PV Peak Velocity 90.0 cm/s RV Acceleration Time 0.1 s RV Ejection Time 0.3 s RV AcT/ET 0.4 FINDINGS Left Ventricle Normal left ventricular cavity size. Severely increased left ventricular wall thickness. Severe concentric left ventricular hypertrophy. Sigmoid septum with basal septal hypertrophy. Hyperdynamic left ventricular systolic function. Left ventricular ejection fraction is estimated at 75% visually. Abnormal diastolic function. Right Ventricle Normal right ventricular size and systolic function. Right ventricular systolic pressure 39 mmHg. Right Atrium Normal right atrial size. Pacemaker wire in the right atrial cavity. Left Atrium Moderately increased left atrial size. Mitral Valve Mild mitral annular calcification. Moderately thickened mitral valve. No mitral valve stenosis. No mitral valve regurgitation. Aortic Valve Moderately thickened and calcified trileaflet aortic valve. Thickening and calcification more pronounced at noncoronary cusp. No aortic valve stenosis. Vhvs-[id number] aortic valve regurgitation. There appears to be mild left ventricular outflow tract obstruction with sigmoid septum and hyperdynamic left ventricular function. Tricuspid Valve Structurally normal tricuspid valve. No tricuspid valve stenosis. Moderate tricuspid valve regurgitation. Pulmonic Valve Structurally normal pulmonic valve. No pulmonary valve stenosis. Trace pulmonary valve regurgitation. Pericardium Trivial pericardial effusion. Aorta Normal size aortic root and proximal ascending aorta. IVC Inferior vena cava not visualized. CONCLUSIONS 1. Normal left ventricular cavity size. Severely increased left ventricular wall thickness. Severe concentric left ventricular hypertrophy. Sigmoid septum with basal septal hypertrophy. Hyperdynamic left ventricular systolic function. Left ventricular ejection fraction is estimated at 75% visually. Abnormal diastolic function. 2. Moderately thickened and calcified trileaflet aortic valve ( more pronounced at noncoronary cusp). No aortic valve stenosis. [id number] aortic valve regurgitation. 3. There appears to be mild left ventricular outflow tract obstruction with sigmoid septum and hyperdynamic left ventricular function. 4. Moderate tricuspid valve regurgitation. 5. Trivial pericardial effusion. 6. No prior similar studies to compare. Shannan Andrade MD (Electronically Signed) Final Date: 22 August 2022 12:50 S
--- NOTE | 2022-08-21 17:40 | PM.CONSULT ---
Providers/Reason For Consult Consulting Physician/Specialty*: Dr. Rene Reason for Consult*: Post cardiac arrest Attending Physician: Marnia Rene MD Primary Care Provider: Steffany Barahona NP History of Present Illness History of Present Illness Paula Leonardo is a 72 year old female with past medical history of hypertension, CVA, hyperlipidemia, CHF, possible A. fib on Flecainide and s/p dual chamber pacemaker, suprisingly not on anticoagulation, chronic kidney disease, history of multiple myeloma who recently moved to the area from [place]. History obtained from chart. She is brought into the emergency room today after a V. fib arrest.? Patient was apparently getting out of the shower today, being assisted by her home health aide when suddenly she collapsed to the floor.? When EMS arrived her HR was in 40's and then she had witnessed arrest and per EMS rhythm was V. fib, she was defibrillated twice in the field, received chest compressions and CPR and was brought to the emergency room.? Shegot 9 doses of epi in route to the emergency room.? She presented at the emergency room being on her automated compression device.? This was removed in the ER and she was found to have a palpable pulse with a ROSC.? Total down time ~ 30 minutes. She was transiently hypotensive for which Levophed was started, however blood pressure then improved with 2 L bolus. EKG showed AV sequentially paced rhythm. She apparently had a gag reflex when an NG tube was to be placed in ER.?Baseline troponin T 213--> 253-->359. No complains of any chest pain, dyspnea or palpitations right before the event per chart.? Multiple family members with influenza A.?No IC bleed on CT head and no PE on CTA. Multiple rib fractures noted. Review of Systems General: Reports: ROS unobtainable due to endotracheal tube and ROS unobtainable due to mental status Medications/Allergies Home Medications Medication Instructions Recorded Confirmed Last Taken Type albuterol sulfate 90 mcg/actuation 2 puff inhalation 6XD PRN 07/17/22 08/21/22 Unknown Rx aerosol inhaler (Ventolin HFA) shortness of breath or wheezing #8.5 grams amlodipine 10 mg tablet 10 mg PO DAILY 90 days #90 tabs 07/17/22 08/21/22 Unknown Rx atorvastatin 20 mg tablet 20 mg PO DAILY 90 days #90 tabs 07/17/22 08/21/22 Unknown Rx budesonide-formoterol HFA 160 2 puff inhalation BID #10.2 grams 07/17/22 08/21/22 Unknown Rx mcg-4.5 mcg/actuation aerosol inhaler (Symbicort) buspirone 10 mg tablet 10 mg PO BID 90 days #180 tabs 07/17/22 08/21/22 Unknown Rx clopidogrel 75 mg tablet 75 mg PO DAILY 90 days #90 tabs 07/17/22 08/21/22 Unknown Rx colchicine 0.6 mg tablet 0.6 mg PO DAILY PRN gout #90 tabs 07/17/22 08/21/22 Unknown Rx digoxin 125 mcg (0.125 mg) tablet 125 mcg PO DAILY 90 days #90 tabs 07/17/22 08/21/22 Unknown Rx diltiazem HCl 180 mg capsule,24 180 mg PO DAILY 90 days #90 caps 07/17/22 08/21/22 Unknown Rx hr,extended release famotidine 20 mg tablet (Acid 20 mg PO BID 90 days #180 tabs 07/17/22 08/21/22 Unknown Rx Agency Trainer (famotidine)) flecainide 50 mg tablet 50 mg PO Q12H 90 days #180 tabs 07/17/22 08/21/22 Unknown Rx fluticasone propionate 50 1 spray intranasal Q12H #16 grams 07/17/22 08/21/22 Unknown Rx mcg/actuation nasal spray,suspension (Flonase Allergy Relief) furosemide 20 mg tablet (Lasix) 20 mg PO QAM 90 days #90 tabs 07/17/22 08/21/22 Unknown Rx hydralazine 25 mg tablet 25 mg PO DAILY 90 days #90 tabs 07/17/22 08/21/22 Unknown Rx linaclotide 72 mcg capsule 72 mcg PO QAM 90 days #90 caps 07/17/22 08/21/22 Unknown Rx (Linzess) methocarbamol 500 mg tablet 500 mg PO BID 90 days #180 tabs 07/17/22 08/21/22 Unknown Rx nortriptyline 75 mg capsule 75 mg PO .HS 90 days #90 caps 07/17/22 08/21/22 Unknown Rx oxycodone-acetaminophen 7.5 mg-325 1 tab PO Q6H PRN Pain 07/17/22 08/21/22 Unknown History mg tablet pantoprazole 40 mg tablet,delayed 40 mg PO DAILY 90 days #90 tabs 07/17/22 08/21/22 Unknown Rx release (Protonix) spironolactone 25 mg tablet 25 mg PO DAILY 90 days #90 tabs 07/17/22 08/21/22 Unknown Rx ferrous sulfate 325 mg (65 mg 325 mg PO BID 90 days #180 tabs 07/18/22 08/21/22 Unknown Rx iron) tablet ozwvmpygdo-zqsejebsznlrs-kdcarykk 1 tab PO Q4H PRN pain 30 days #90 08/10/22 08/21/22 Unknown Rx 50 mg-325 mg-40 mg tablet tabs carvedilol 25 mg tablet 25 mg PO Q12H 90 days #180 tabs 08/10/22 08/21/22 Unknown Rx tramadol 100 mg tablet 100 mg PO TID PRN pain 30 days #90 08/10/22 08/21/22 Unknown Rx tabs galcanezumab-gnlm 120 mg/mL 120 mg SUBCUT Q30D 08/21/22 08/21/22 Unknown History subcutaneous pen injector (Emgality Pen) Allergies Allergy/AdvReac Type Severity Reaction Status Date / Time codeine Allergy Unknown Unknown Verified 08/21/22 14:44 Penicillins Allergy Unknown Unknown Verified 08/21/22 14:44 Sulfa (Sulfonamide Allergy Unknown Unknown Verified 08/21/22 14:44 Antibiotics) Current Medications Generic Name Dose Route Start Last Admin Trade Name Freq PRN Reason Stop Dose Admin Amiodarone HCl 900 mg/ 518 mls @ 0 mls/hr 08/21/22 14:00 08/21/22 14:59 Dextrose/ IV Miscellaneous IV 0.5 mg/min Supplies .Q0M RADHA 17.27 mls/hr Administration Protocol Per Protocol Propofol 1,000 mg in 100 mls @ 0 mls/hr 08/21/22 14:15 08/21/22 15:00 Diprivan IV 5 mcg/kg/min .Q0M RADHA 1.61 mls/hr Administration Protocol Per Protocol Sodium Chloride 1,000 mls @ 125 mls/hr 08/21/22 14:15 08/21/22 15:00 Sodium Chloride 0.9% IV 999 mls/hr .Q8H RADHA Infusion PFSH Acute PFSH: Medical History Chronic headaches Chronic pain Depression with anxiety GERD (gastroesophageal reflux disease) Gout Heart failure Hx of deep venous thrombosis Hyperlipidemia Irregular heartbeat Muscle spasm Pacemaker Surgical History History of shoulder replacement Family History Other Cancer Diabetes Hypertension Social History Smoking and tobacco status: never smoked Vitals/I&O/Wt Last Vital Signs Pulse 61 08/21/22 17:15 Resp 16 08/21/22 17:21 BP 117/55 08/21/22 17:15 Pulse Ox 96 08/21/22 17:21 O2 Del Method 08/21/22 13:50 FiO2 30 08/21/22 17:21 08/21/22 08/21/22 08/21/22 06:59 14:59 22:59 Intake Total 107.167 / 107.167 Balance 107.167 / 107.167 Weight last 48 hrs Weight 118 lb Physical Exam Narrative: GENERAL: frail lady intubated and sedated HEENT: Pupils equal round reactive to light. No pallor or icterus. NECK: central trachea, No JVD. Right SC line in place. CARDIOVASCULAR SYSTEM: S1-S2 regular. grade 3/6 diastolic murmur+ in aortic area RESPIRATORY SYSTEM: Chest clear to auscultation anteriorly. ABDOMEN: Soft, nontender and nondistended. EXTREMITIES: No cyanosis or edema. CLOTHES SEPARATOR: Patient is intubated and sedated Urinary Catheter Management: Escamilla: Cath Placed During This Visit: yes Urinary Catheter Date of Insertion: 08/21/22 Urinary Catheter Time of Insertion: 15:35 Data 08/21/22 14:10 08/21/22 14:10 Micro: Microbiology 08/21/22 15:30 Gram Stain - Final Sputum - Endotracheal Tube Aspirate 08/21/22 14:15 Blood Culture - Preliminary Blood SPECIMEN COLLECTED 08/21/22 14:10 Blood Culture - Preliminary Blood SPECIMEN COLLECTED A&P Assessment and plan (1) Cardiac arrest: Presenting rhythm was V fib/V tach per EMS strip unavailable. -Presenting GCS<6 with no absolute contraindication for TTM. 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
--- NOTE | 2022-08-21 18:00 | PC.NURSE ---
Pt was admitted to ICU on ventilator via bed. Amio, propofol and fluid bolus running. No reflexes present. Multiple skin tears are noted to both arms.
[2022-08-21 18:16] LABS: Platelet Count 89 10^3/cmm (130-400)
--- NOTE | 2022-08-21 18:19 | PM.HP ---
Providers/Chief Complaint Admitting Physician: Marina Rene MD Primary Care Provider: Steffany Barahona NP Chief Complaint: cardiac arrest History of Present Illness Paula Leonardo is a 72 year old female recently moved to [place] from [place] 1 month ago. Most of the history is obtained by talking to her daughter and by reviewing her past medical records that are scanned in the system. Patient has a past medical history of hypertension, CVA, hyperlipidemia, CHF, A. fib has a pacemaker in place not on any known anticoagulation, uncertain why, chronic kidney disease, history of multiple myeloma, recently at a rehab facility until 1 month ago after being admitted there following an episode of diverticulitis. Per review of outpatient PCPs note she had 3+ pitting edema bilateral lower extremity up to the knee level. She is being followed by home health. She is brought into the emergency room today after a V. fib arrest. Patient was apparently getting out of the shower today, being assisted by her home health aide when suddenly she collapsed to the floor. When EMS first got to her she was noted to have V. fib, she was defibrillated twice in the field, received chest compressions and CPR and was brought to the emergency room. She has had 9 doses of epi in route to the emergency room. She presented at the emergency room being on her automated compression device. This was removed in the ER and she was found to have a palpable pulse with a ROSC. She was transiently hypotensive for which Levophed was transiently started, however blood pressure then improved with 2 L bolus and pressors were not initiated. EKG showed paced rhythm. She apparently had a gag reflex when an NG tube was to be placed. Upon my assessment, she has a corneal reflex, and is closing her eyes possibly in response to her eyelashes being flickered. She did not complain of any chest pain dyspnea or palpitations right before the event. She had presented into the emergency room on August 05, 2022. She had been feeling sick over the past 10 days or so. She has had body aches, and some URI symptoms. Multiple family members currently have influenza A. Respiratory viral panel is currently pending. Review of Systems General: Reports: ROS unobtainable due to medical condition and ROS unobtainable due to mental status Medications/Allergies Home Medications Medication Instructions Recorded Confirmed Last Taken Type albuterol sulfate 90 mcg/actuation 2 puff inhalation 6XD PRN 07/17/22 08/21/22 Unknown Rx aerosol inhaler (Ventolin HFA) shortness of breath or wheezing #8.5 grams amlodipine 10 mg tablet 10 mg PO DAILY 90 days #90 tabs 07/17/22 08/21/22 Unknown Rx atorvastatin 20 mg tablet 20 mg PO DAILY 90 days #90 tabs 07/17/22 08/21/22 Unknown Rx budesonide-formoterol HFA 160 2 puff inhalation BID #10.2 grams 07/17/22 08/21/22 Unknown Rx mcg-4.5 mcg/actuation aerosol inhaler (Symbicort) buspirone 10 mg tablet 10 mg PO BID 90 days #180 tabs 07/17/22 08/21/22 Unknown Rx clopidogrel 75 mg tablet 75 mg PO DAILY 90 days #90 tabs 07/17/22 08/21/22 Unknown Rx colchicine 0.6 mg tablet 0.6 mg PO DAILY PRN gout #90 tabs 07/17/22 08/21/22 Unknown Rx digoxin 125 mcg (0.125 mg) tablet 125 mcg PO DAILY 90 days #90 tabs 07/17/22 08/21/22 Unknown Rx diltiazem HCl 180 mg capsule,24 180 mg PO DAILY 90 days #90 caps 07/17/22 08/21/22 Unknown Rx hr,extended release famotidine 20 mg tablet (Acid 20 mg PO BID 90 days #180 tabs 07/17/22 08/21/22 Unknown Rx Radiation Control Health Physicist (famotidine)) flecainide 50 mg tablet 50 mg PO Q12H 90 days #180 tabs 07/17/22 08/21/22 Unknown Rx fluticasone propionate 50 1 spray intranasal Q12H #16 grams 07/17/22 08/21/22 Unknown Rx mcg/actuation nasal spray,suspension (Flonase Allergy Relief) furosemide 20 mg tablet (Lasix) 20 mg PO QAM 90 days #90 tabs 07/17/22 08/21/22 Unknown Rx hydralazine 25 mg tablet 25 mg PO DAILY 90 days #90 tabs 07/17/22 08/21/22 Unknown Rx linaclotide 72 mcg capsule 72 mcg PO QAM 90 days #90 caps 07/17/22 08/21/22 Unknown Rx (Linzess) methocarbamol 500 mg tablet 500 mg PO BID 90 days #180 tabs 07/17/22 08/21/22 Unknown Rx nortriptyline 75 mg capsule 75 mg PO .HS 90 days #90 caps 07/17/22 08/21/22 Unknown Rx oxycodone-acetaminophen 7.5 mg-325 1 tab PO Q6H PRN Pain 07/17/22 08/21/22 Unknown History mg tablet pantoprazole 40 mg tablet,delayed 40 mg PO DAILY 90 days #90 tabs 07/17/22 08/21/22 Unknown Rx release (Protonix) spironolactone 25 mg tablet 25 mg PO DAILY 90 days #90 tabs 07/17/22 08/21/22 Unknown Rx ferrous sulfate 325 mg (65 mg 325 mg PO BID 90 days #180 tabs 07/18/22 08/21/22 Unknown Rx iron) tablet tggdgdgvsm-rjdfqsfycoypi-izksmnzp 1 tab PO Q4H PRN pain 30 days #90 08/10/22 08/21/22 Unknown Rx 50 mg-325 mg-40 mg tablet tabs carvedilol 25 mg tablet 25 mg PO Q12H 90 days #180 tabs 08/10/22 08/21/22 Unknown Rx tramadol 100 mg tablet 100 mg PO TID PRN pain 30 days #90 08/10/22 08/21/22 Unknown Rx tabs galcanezumab-gnlm 120 mg/mL 120 mg SUBCUT Q30D 08/21/22 08/21/22 Unknown History subcutaneous pen injector (Emgality Pen) Allergies Allergy/AdvReac Type Severity Reaction Status Date / Time codeine Allergy Unknown Unknown Verified 08/21/22 14:44 Penicillins Allergy Unknown Unknown Verified 08/21/22 14:44 Sulfa (Sulfonamide Allergy Unknown Unknown Verified 08/21/22 14:44 Antibiotics) PFSH Acute PFSH: Medical History Chronic headaches Chronic pain Depression with anxiety GERD (gastroesophageal reflux disease) Gout Heart failure Hx of deep venous thrombosis Hyperlipidemia Irregular heartbeat Muscle spasm Pacemaker Surgical History History of shoulder replacement Family History Other Cancer Diabetes Hypertension Social History Smoking and tobacco status: never smoked Vitals/I&O/Wt Last Vital Signs Pulse 61 08/21/22 17:15 Resp 16 08/21/22 17:21 BP 117/55 08/21/22 17:15 Pulse Ox 96 08/21/22 17:21 O2 Del Method 08/21/22 17:31 FiO2 30 08/21/22 17:21 08/21/22 08/21/22 08/21/22 06:59 14:59 22:59 Intake Total 107.167 / 107.167 Balance 107.167 / 107.167 Weight last 48 hrs Weight 53.524 kg Physical Exam Narrative: General: Intubated, appears to be somewhat cachexic, BMI 17 HEENT: PERRLA, pupils mid dilated, sluggish recation to light, closes and opens eys in response to eyelashes being flicked. Corneal reflex+ Chest: Normal vesicular breath sounds, no added sounds, equal good air entry bilaterally CVS: S1-S2 regular, no murmurs, no tachycardia, no gallops, no rubs Abdomen: Soft, nontender, no organomegaly, bowel sounds present Neuro: intubated, sedated Extremities: peripheries cool to touch, no edema, clubbing or cyanosis Urinary Catheter Management: [place]am[place]: Cath Placed During This Visit: yes Urinary Catheter Date of Insertion: 08/21/22 Urinary Catheter Time of Insertion: 15:35 Data 08/21/22 18:09 08/21/22 14:10 Micro: Microbiology 08/21/22 15:30 Gram Stain - Final Sputum - Endotracheal Tube Aspirate 08/21/22 14:15 Blood Culture - Preliminary Blood SPECIMEN COLLECTED 08/21/22 14:10 Blood Culture - Preliminary Blood SPECIMEN COLLECTED A&P Assessment and plan (1) Cardiac arrest: (2) Cardiac arrest with ventricular fibrillation: (3) Acute kidney injury superimposed on CKD: Plan Admitted to ICU for post code care and evaluation Patient presenting today with sudden collapse at home. Reportedly found to be in V. fib arrest by EMS. She has received defibrillation x2, CPR performed, 9 rounds of epinephrine in route to the ER. ROSC obtained. Given sudden onset of symptoms, suspect an underlying cardiac event such as arrhythmia, acute HI versus PE CTA chest to evaluate for PE. EKG currently showing paced rhythm. Baseline troponin in the 200 range, trending up to 250,with a delta of 40. Currenty started on amiodarone infusion which we will continue started on heprain GTT for possible NSTEMI hold ca channel blockers, digoxin and flecainide Dig level elevated at 5.5, ordered for digibind Cardiac echo ordered cardiology consult pacemaker check electrolytes within range K 4.4, Mag 2.4 No pneumothorax on CXR ABG initial with metabolic acidosis, improving, hol doff on bicarb infusion for now Lorin on CKD likely as a result of poor perfusion, ATN secondary to code. ELevated lactate additionally related to the same. IVF 125 cc/hr for now, await echocardiogram Hold antihypertensives TArget MAP >65 All updates discussed with daughter at bedside. She is additionally made aware of risk of WAYNE. however weighting risk benefit ratio to diagnose PE in this setting, CTA PE has been ordered Attestations Medical Necessity Statement*: needs >2midnight stay for post cardiac arrest and CPR care, further evaluation of underlying cause Critical Care Time: The high probability of a clinically significant, sudden or life threatening deterioration of the patient's [cardiac, respiratory,renal, metabolic] system(s) required my full and direct attention, intervention and personal management. The critical care time is as shown. 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
[2022-08-21] MEDS: sodium chloride 0.9% 1,000 ML 999 ML IV ×2 (18:28)
[2022-08-21 18:33] LABS: Adenovirus Not Detected (NOT DETECT); Chlamydia Pneumoniae Not Detected (NOT DETECT); Coronavirus 229E,HKU1,NL63,OC4 Not Detected (NOT DETECT); Human Metapneumovirus Not Detected (NOT DETECT); Human Rhinovirus/Enterovirus Not Detected (NOT DETECT); Influenza A Not Detected (NOT DETECT); Influenza A H1 Not Detected (NOT DETECT); Influenza A H1-2009 Not Detected (NOT DETECT); Influenza A H3 Not Detected (NOT DETECT); Influenza B Not Detected (NOT DETECT); Mycoplasma Pneumoniae Not Detected (NOT DETECT); Parainfluenza Virus Type 1 Not Detected (NOT DETECT); Parainfluenza Virus Type 2 Not Detected (NOT DETECT); Parainfluenza Virus Type 3 Not Detected (NOT DETECT); Parainfluenza Virus Type 4 Not Detected (NOT DETECT); Respiratory Syncytial Virus A Not Detected (NOT DETECT); Respiratory Syncytial Virus B Not Detected (NOT DETECT); SARS-COV-2 Not Detected (NOT DETECT)
[2022-08-21] MEDS: heparin drip 25,000 UNIT/500 ML PREMIX 15 UNIT IV (18:34)
--- NOTE | 2022-08-21 19:53 | ECG_ITS ---
[facility] Test Date: 2022-08-21 Pat Name: Paula Leonardo Department: Room: ICU07 Gender: Female Broadcaster: : 1950 Requested By: Marcos Jeff Order Number: [id number] Barbi MD: Rick Hernandez M.D. Measurements Intervals [place] Rate: 70 P: 76 DE: 114 QRS: 63 QRSD: 106 T: 27 QT: 407 QTc: 441 Interpretive Statements SINUS RHYTHM WITH SHORT DE INTERVAL INCOMPLETE RIGHT BUNDLE BRANCH BLOCK [90+ ms QRS DURATION, TERMINAL R IN V1/V2, 40+ ms S IN I/aVL/V4/V5/V6] NONSPECIFIC ST & T-WAVE ABNORMALITY Compared to ECG 08/21/2022 16:38:19 Short DE interval now present Incomplete right bundle-branch block now present T-wave abnormality now present Atrial-paced complex(es) or rhythm no longer present Ventricular-paced complex(es) or rhythm no longer present Electronically Signed On 08-23-2022 9:26:18 MINE LABORER by Rick Hernandez M.D. [id number]
[2022-08-21 21:00] LABS: Troponin 5 6HR 358.8 ng/L (0-10); Troponin 5 6HR Delta 145.8 ng/L (0-12)
[2022-08-22] VITALS (97 sets, daily range): BP systolic 82–127; BP diastolic 48–70; PULSE 60–81; RESP 15–35; TEMP 35.8–35.9; O2SAT 91–100
[2022-08-22 01:57] LABS: Basophils % 0.2 %; Eosinophils # 0.3 10^3/uL (0.0-0.8); Eosinophils % 2.8 %; Hematocrit 30.1 % (37.0-47.0); Lymphocytes # 0.4 10^3/uL (0.8-4.8); Lymphocytes % 4.5 %; Mean Corpuscular HGB Conc 33.2 g/dL (30.0-36.0); Mean Corpuscular Hemoglobin 33.6 pg (28.0-34.0); Mean Platelet Volume 10.2 fL (7.4-10.4); Monocytes # 0.5 10^3/uL (0.2-0.9); Monocytes % 5.3 %; Neutrophils # 8.18 10^3/uL (1.8-7.7); Neutrophils % 86.7 %; Nucleated Red Blood Cells % 0 %; Platelet Count 91 10^3/cmm (130-400); Red Blood Count 2.98 10^6/uL (4.1-5.3); Red Cell Distribution Width 13.1 % (12.1-15.1); White Blood Count 9.4 10^3/uL (4.0-10.0)
[2022-08-22 02:43] LABS: Alanine Aminotransferase 34 U/L (0-33); Alkaline Phosphatase 115 U/L (35-105); Anion Gap 20.2 (5-19); Aspartate Amino Transferase 58 U/L (0-32); Blood Urea Nitrogen 50 mg/dL (8-23); Calcium 6.7 mg/dL (8.5-10.5); Carbon Dioxide 21 mmol/L (22-29); Chloride 100 mmol/L (98-107); Chol HDL Ratio 1.76 mg/dL (0.0-4.40); Cholesterol 72 mg/dL (0-200); Globulin 2.5 g/dL (1.3-4.6); Glucose 195 mg/dL (65-115); HDL Cholesterol 41 mg/dL (60-100); LDL Cholesterol Calculated 4 mg/dL (50-129); Magnesium 1.9 mg/dL (1.7-2.3); Osmolality Calculated 305 mOsm/kg (285-295); Potassium 3.2 mmol/L (3.5-5.1); Sodium 138 mmol/L (136-145); Total Bilirubin 0.5 mg/dL (0.15-1.2); Total Protein 4.5 g/dL (6.6-8.7); Triglycerides 136 mg/dL (0-150)
[2022-08-22 02:57] LABS: Partial Thromboplastin Time > 250.0 SECONDS (23.9-36.7)
[2022-08-22 03:43] LABS: ABG PCO2 24.8 mmHg (35-45); ABG PH Result 7.51 (7.35-7.45); Arterial Blood Gas Hematocrit 31.5 % (37-47); Base Excess ABG -2.2 mmol/L (-2.0-2.0); Blood Gas Allen Test Pos; Blood Gas Sample Site Radial, right; Blood Gas Sample Type Arterial; HCO3 ABG 19.7 mmol/L (22-26); Oxygen Device VENT; PO2 ABG 88.7 mmHg (80.0-100.0)
--- NOTE | 2022-08-22 04:00 | XRR_ITS ---
PROCEDURE INFORMATION: Exam: XR Chest Exam date and time: 08/22/2022 3:53 AM Age: 72 years old Clinical indication: Device placement; Ett placement (vent status); Patient HX: F/u resp failure post cardiac arrest. ; Additional info: Et tube TECHNIQUE: Imaging protocol: Radiologic exam of the chest. Views: 1 view. Total images: 2 COMPARISON: CR XR chest 1V portable [id number] 08/21/2022 3:31 PM FINDINGS: Tubes, catheters and devices: A pacemaker device is present, its leads in appropriate position. Tubes and catheters are unchanged from the prior exam. Lungs: Unremarkable. No consolidation. Pleural spaces: Unremarkable. No pleural effusion. No pneumothorax. Heart/Mediastinum: Heart size is stable when compared to the prior exam. Bones/joints: Bilateral shoulder arthroplasties. Osseous structures are unchanged from the prior exam. XR/XR chest 1V portable [id number] IMPRESSION: 1. Tubes and catheters are unchanged from the prior exam. 2. No acute cardiopulmonary process.
[2022-08-22] MEDS: sodium chloride 0.9% 1,000 ML 125 ML IV (04:51)
[2022-08-22 05:30] LABS: Glucose Point of Care 177 mg/dL (70-110)
--- NOTE | 2022-08-22 05:55 | PC.NURSE ---
Shift Note Frequent safety and comfort rounds continue. Orders and/or nursing care completed as indicated. Patient monitored for response to intervention and treatment(s). Education provided includes treatment plan. Patient needs reinforcement teaching. Patient had an uneventful shift remains intubated settings as follows; mode-VC-AC, FiO2-30%, VT-320, PEEP-5, rate-14. Patient does not follow commands at this time but opens eyes to verbal stimuli. Amiodarone, Propofol and IVF infusing per orders please see MAR for infusion rates. Multiple skin tears noted to bilateral arms, no other wounds/skin issues noted at this time. Escamilla catheter drained 50 mls of urine overnight. Will continue to monitor.
[2022-08-22 06:33] LABS: Partial Thromboplastin Time 123.2 SECONDS (23.9-36.7)
[2022-08-22 09:18] LABS: ABG PCO2 23.9 mmHg (35-45); ABG PH Result 7.49 (7.35-7.45); Alveolar-Arterial Oxygen Gradi 9.1 mmHg (5-10); Arterial Blood Gas Hematocrit 29.7 % (37-47); Base Excess ABG -4.3 mmol/L (-2.0-2.0); Blood Gas Operator Identificat GD; Blood Gas Sample Site Brachial, left; Blood Gas Sample Type Arterial; Blood Gas Tidal Volume 0.32; Carboxyhemoglobin 0.7 %THgb (0.4-20.1); Ionized Calcium Level - ABG 0.9 mmol/L (1.1-1.4); Methemoglobin 1.3 % (0.4-1.5); Oxygen Device VENT; Potassium Level - ABG 3.4 mmol/L (3.5-5.0); Total Hemoglobin 9.7 g/dL (12-16)
[2022-08-22] MEDS: pantoprazole 40 mg SDV IVP (09:37)
--- NOTE | 2022-08-22 12:13 | PC.CHAP ---
Pastoral Care Encounter/Spiritual Assessment Type of Contact [] Declined loin trimmer visit [] Patient/Family/Request visit [] Outpatient visit [] Follow-up visit [] Physician referral [] Code/Alert [x] Routine visit [] Staff referral [] Actively dying [x] Patient sleeping [x] Family support [] [] Out of room [] Palliative care [] [] Receiving care in room [] Pre-surgical visit [] Trauma [] Long length of stay [x] ICU visit [x] Other: vent... chaplanki met PT in ER last evening.. have seen no improvement Relational/Emotional Strength [] Patient feels connected with others/family/visitors/staff [] Distress [] Loneliness/isolation [] Abandonment Spirituality of Patient [] Person of Amy [] Attends Gnosticism of their Amy [] Believes in Prayer [] Reads Bible or Samaritan materials [] There are Spiritual issues to be addressed Lead Web Developer Interventions [x] Prayer [] Active listening [] Non-anxious presence [] Spiritual/emotional support [] Crisis/trauma care [] Spiritual counseling [] Bereavement support [] Provided bereavement packet [] Provided Bible/devotional materials [] Provided toy/stuffed animal, coloring book to patient or family member [] Provided Communion [] Anointing/[place] [] Salvation [x] Completed spiritual assessment [] Other: Impact on Illness or Injury [] Angry [] Fearful [] Anxious [] Often cries [] Exhaustion [] Unable to work [] Unable to attend shinto [] Unable to walk/stand [] Unable to read [] Unable to drive [] Unable to eat/drink [] Unable to sleep [] Unable to be with family [] Patient intubated [] Other: Summary Time spent with patient
[2022-08-22] MEDS: dexmedeTOMIDine 0.9 % NaCL 400 MCG/100 ML PREMIX IV (12:19)
[2022-08-22 13:54] LABS: Partial Thromboplastin Time > 250.0 SECONDS (23.9-36.7)
--- NOTE | 2022-08-22 16:53 | PM.PN ---
Subjective Subjective: Patient was taken off of propofol this morning to assess mental status. With taking propofol off, patient has had no meaningful mentation thus far. She does overbreathing the vent when taken off sedation. Fentanyl and Precedex have been started instead of propofol. She does not have a gag reflex or corneal reflex today. This afternoon patient's blood pressure dropped down to 68/40. Levophed was started. Vitals/I&O/Wt Last Vital Signs Temp 96.4 F L 08/22/22 12:30 Pulse 68 08/22/22 13:00 Resp 35 H 08/22/22 14:20 BP 94/54 08/22/22 13:00 Pulse Ox 91 08/22/22 14:20 O2 Del Method 08/21/22 20:10 FiO2 24 08/22/22 14:20 08/22/22 08/22/22 08/22/22 06:59 14:59 22:59 Intake Total 1127.75 / 3280.750 112.142 / 112.142 26.047 / 138.189 Output Total 50 / 50 Balance 1077.75 / 3230.750 112.142 / 112.142 26.047 / 138.189 Weight last 48 hrs Weight 53.524 kg Physical Exam Narrative: General: Intubated, appears to be somewhat cachexic, BMI 17 HEENT: PERRLA, pupils mid dilated, sluggish reaction to light, closes and opens eyes in response to eyelashes being flicked. Corneal reflex absent. Chest: Normal vesicular breath sounds, no added sounds, equal good air entry bilaterally CVS: S1-S2 regular, no murmurs, no tachycardia, no gallops, no rubs Abdomen: Soft, nontender, no organomegaly, bowel sounds present Neuro: intubated, sedated Extremities: peripheries cool to touch, no edema, clubbing or cyanosis Urinary Catheter Management: [place]: Cath Placed During This Visit: yes Reason for Continuing Indwelling Catheter: Accurate Measurement of Urinary Output in Critically Ill Patients Urinary Catheter Date of Insertion: 08/21/22 Urinary Catheter Time of Insertion: 15:35 Data 08/22/22 00:59 08/22/22 00:59 Other Labs: Radiology Impressions Chest CTA 08/21/22 16:19 IMPRESSION: 1. No pulmonary embolism. 2. Right 2nd through 6th and left 3rd through 6th anterior rib fractures. 3. Satisfactory lines and tubes. Head CT 08/21/22 16:19 IMPRESSION: 1. Mild diffuse white matter disease likely reflecting chronic microvascular ischemic changes. 2. Right paranasal sinus mucosal thickening. 3. Negative for intracranial hemorrhage or mass effect. Chest X-Ray 08/22/22 04:00 IMPRESSION: 1. Tubes and catheters are unchanged from the prior exam. 2. No acute cardiopulmonary process. Laboratory Results WBC 9.4 10^3/uL (4.0-10.0) 08/22/22 00:59 RBC 2.98 10^6/uL (4.1-5.3) L 08/22/22 00:59 Hgb 10.0 g/dL (11.5-15.3) L 08/22/22 00:59 Hct 30.1 % (37.0-47.0) L 08/22/22 00:59 MCV 101.0 fl (81-99) H 08/22/22 00:59 MCH 33.6 pg (28.0-34.0) 08/22/22 00:59 MCHC 33.2 g/dL (30.0-36.0) 08/22/22 00:59 RDW 13.1 % (12.1-15.1) 08/22/22 00:59 Plt Count 91 10^3/cmm (130-400) L 08/22/22 00:59 MPV 10.2 fL (7.4-10.4) 08/22/22 00:59 Neut % (Auto) 86.7 % 08/22/22 00:59 Lymph % (Auto) 4.5 % 08/22/22 00:59 [place] % (Auto) 5.3 % 08/22/22 00:59 Eos % (Auto) 2.8 % 08/22/22 00:59 Baso % (Auto) 0.2 % 08/22/22 00:59 Neut # (Auto) 8.18 10^3/uL (1.8-7.7) H 08/22/22 00:59 Lymph # (Auto) 0.4 10^3/uL (0.8-4.8) L 08/22/22 00:59 [place] # (Auto) 0.5 10^3/uL (0.2-0.9) 08/22/22 00:59 Eos # (Auto) 0.3 10^3/uL (0.0-0.8) 08/22/22 00:59 Baso # (Auto) 0.0 10^3/uL (0.0-0.1) 08/22/22 00:59 Nucleated RBC % (auto) 0 % 08/22/22 00:59 Nucleated RBCs # 0.0 /100WBC 08/22/22 00:59 PT 17.60 SECONDS (12.1-14.9) H 08/21/22 14:10 INR 1.41 (0.8-1.2) H 08/21/22 14:10 APTT > 250.0 SECONDS (23.9-36.7) H* D 08/22/22 13:05 Specimen Type Arterial 08/22/22 09:00 Sample Site Brachial, left 08/22/22 09:00 ABG pH 7.49 (7.35-7.45) H 08/22/22 09:00 ABG pCO2 23.9 mmHg (35-45) L 08/22/22 09:00 ABG pO2 109.0 mmHg (80.0-100.0) H 08/22/22 09:00 ABG HCO3 18.0 mmol/L (22-26) L 08/22/22 09:00 ABG O2 Saturation 99.0 08/22/22 09:00 ABG Base Excess -4.3 mmol/L (-2.0-2.0) L 08/22/22 09:00 Ovi Test N/a 08/22/22 09:00 A-a O2 Gradient 9.1 mmHg (5-10) 08/22/22 09:00 Hematocrit 29.7 % (37-47) L 08/22/22 09:00 Hgb O2 Saturation 97.0 % (95-100) 08/22/22 09:00 Carboxyhemoglobin 0.7 %THgb (0.4-20.1) 08/22/22 09:00 Methemoglobin 1.3 % (0.4-1.5) 08/22/22 09:00 Total Hemoglobin 9.7 g/dL (12-16) L 08/22/22 09:00 Sodium 136.0 mmol/L (131-143) 08/22/22 09:00 Potassium 3.4 mmol/L (3.5-5.0) L 08/22/22 09:00 Glucose 140.0 mg/dL (70-115) H 08/22/22 09:00 Ionized Calcium 0.9 mmol/L (1.1-1.4) L 08/22/22 09:00 O2 Delivery Device Vent 08/22/22 09:00 O2 Liters/Min 15.0 % 08/21/22 13:43 FiO2 30.0 % 08/22/22 09:00 Tidal Volume 0.32 08/22/22 09:00 PEEP 5.0 cmH20 08/22/22 09:00 Adult Basic Studies Teacher ID Gd 08/22/22 09:00 Sodium 138 mmol/L (136-145) 08/22/22 00:59 Potassium 3.2 mmol/L (3.5-5.1) L 08/22/22 00:59 Chloride 100 mmol/L (98-107) 08/22/22 00:59 Carbon Dioxide 21 mmol/L (22-29) L 08/22/22 00:59 Anion Gap 20.2 (5-19) H 08/22/22 00:59 BUN 50 mg/dL (8-23) H 08/22/22 00:59 Creatinine 1.9 mg/dL (0.5-0.9) H 08/22/22 00:59 GFR Calculation Not Reportable 08/22/22 00:59 Glucose 195 mg/dL (65-115) H 08/22/22 00:59 POC Glucose 177 mg/dL (70-110) H 08/22/22 05:16 Calculated Osmolality 305 mOsm/kg (285-295) H 08/22/22 00:59 Lactate 12.2 mmol/L (0.5-2.2) H* 08/21/22 14:10 Calcium 6.7 mg/dL (8.5-10.5) L 08/22/22 00:59 Magnesium 1.9 mg/dL (1.7-2.3) 08/22/22 00:59 Total Bilirubin 0.5 mg/dL (0.15-1.2) 08/22/22 00:59 AST 58 U/L (0-32) H 08/22/22 00:59 ALT 34 U/L (0-33) H 08/22/22 00:59 Alkaline Phosphatase 115 U/L (35-105) H 08/22/22 00:59 Troponin T Baseline 213 ng/L (0-10) H* 08/21/22 14:10 Troponin T 120 Minute 253.1 ng/L (0-10) H 08/21/22 16:04 Delta Troponin T 40.1 ABS# (0-10) H* 08/21/22 16:04 Troponin T Hi Sens 6Hr 358.8 ng/L (0-10) H 08/21/22 19:57 Troponin T Hi Sens 6Hr Delta 145.8 ng/L (0-12) H* 08/21/22 19:57 NT-Pro-B Natriuret Pep 42816 pg/mL (0-125) H 08/21/22 14:10 Total Protein 4.5 g/dL (6.6-8.7) L 08/22/22 00:59 Albumin 2.0 g/dL (3.5-5.2) L 08/22/22 00:59 Globulin 2.5 g/dL (1.3-4.6) 08/22/22 00:59 Triglycerides 136 mg/dL (0-150) 08/22/22 00:59 Cholesterol 72 mg/dL (0-200) 08/22/22 00:59 LDL Cholesterol, Calc 4 mg/dL (50-129) L 08/22/22 00:59 HDL Cholesterol 41 mg/dL (60-100) L 08/22/22 00:59 LDL/HDL Ratio 0.10 RATIO (0.00-3.22) 08/22/22 00:59 Cholesterol/HDL Ratio 1.76 mg/dL (0.0-4.40) 08/22/22 00:59 Urine Color Yellow (Yellow) 08/21/22 13:48 Urine Appearance Clear (CLEAR) 08/21/22 13:48 Urine pH 5 (5-7) 08/21/22 13:48 Ur Specific [place] 1.020 (1.005-1.030) 08/21/22 13:48 Urine Protein Neg (Negative) 08/21/22 13:48 Urine Glucose (UA) Norm (Normal) 08/21/22 13:48 Urine Ketones 1+ (Negative) H 08/21/22 13:48 Urine Blood Neg (Negative) 08/21/22 13:48 Urine Nitrate Negative (Negative) 08/21/22 13:48 Urine Bilirubin 1+ (Negative) H 08/21/22 13:48 Urine Urobilinogen 1 mg/dL (Negative) H 08/21/22 13:48 Ur Leukocyte Esterase 2+ (Negative) H 08/21/22 13:48 Urine RBC 0-4 /hpf (0-2) H 08/21/22 13:48 Urine WBC 10-15 /hpf (0-5) H 08/21/22 13:48 Ur Squamous Epith Cells 5-10 /hpf (0-5) H 08/21/22 13:48 Ur Renal Epithelial Cell 0-4 /hpf 08/21/22 13:48 Amorphous Sediment Not Reportable 08/21/22 13:48 Urine Bacteria 2+ /hpf (NONE) H 08/21/22 13:48 Hyaline Casts 0-4 /lpf H 08/21/22 13:48 Nasal Influ A H1 2009 PCR Not detected (NOT DETECT) 08/21/22 16:04 Digoxin 5.5 ng/mL (0.6-1.2) H* 08/21/22 16:04 Adenovirus (PCR) Not detected (NOT DETECT) 08/21/22 16:04 C. pneumoniae DNA (PCR) Not detected (NOT DETECT) 08/21/22 16:04 Coronavirus 229E (PCR) Not detected (NOT DETECT) 08/21/22 16:04 Human Metapneumovir PCR Not detected (NOT DETECT) 08/21/22 16:04 Influenza A (H1) PCR Not detected (NOT DETECT) 08/21/22 16:04 Influenza A (H3) PCR Not detected (NOT DETECT) 08/21/22 16:04 Influenza Type A (PCR) Not detected (NOT DETECT) 08/21/22 16:04 Influenza Type B (PCR) Not detected (NOT DETECT) 08/21/22 16:04 M. pneumoniae (PCR) Not detected (NOT DETECT) 08/21/22 16:04 Parainfluenza 1 (PCR) Not detected (NOT DETECT) 08/21/22 16:04 Parainfluenza 2 (PCR) Not detected (NOT DETECT) 08/21/22 16:04 Parainfluenza 3 (PCR) Not detected (NOT DETECT) 08/21/22 16:04 Parainfluenza 4 (PCR) Not detected (NOT DETECT) 08/21/22 16:04 RSV Type A (PCR) Not detected (NOT DETECT) 08/21/22 16:04 RSV Type B (PCR) Not detected (NOT DETECT) 08/21/22 16:04 Entero/Rhino (PCR) Not detected (NOT DETECT) 08/21/22 16:04 SARS-CoV-2 (PCR) Not detected (NOT DETECT) 08/21/22 16:04 Micro: Microbiology 08/21/22 14:15 Blood Culture - Preliminary Blood NEGATIVE TO DATE 08/21/22 14:10 Blood Culture - Preliminary Blood NEGATIVE TO DATE 08/21/22 15:30 Gram Stain - Final Sputum - Endotracheal Tube Aspirate Sputum Culture - Preliminary A&P Assessment and plan (1) Cardiac arrest: (2) Cardiac arrest with ventricular fibrillation: (3) Acute kidney injury superimposed on CKD: Plan Admitted to ICU for post code care and evaluation Patient presenting today with sudden collapse at home. Reportedly found to be in V. fib arrest by EMS. She has received defibrillation x2, CPR performed, 9 rounds of epinephrine in route to the ER. ROSC obtained. Given sudden onset of symptoms, suspect an underlying cardiac event such as arrhythmia, acute [place] versus PE CTA chest to evaluate for PE is negative. EKG currently showing paced rhythm. Baseline troponin in the 200 range, trending up to 250,with a delta of 40. Currenty started on amiodarone infusion which we will continue started on heprain GTT for possible NSTEMI hold ca channel blockers, digoxin and flecainide Dig level elevated at 5.5, received Digibind on 08/21/2022. Cardiac echo showing severe concentric left ventricular hypertrophy cardiology consult appreciated pacemaker check electrolytes within range No fever no leukocytosis no localizing signs or symptoms of infection No pneumothorax on CXR ABG initial with metabolic acidosis, improving, hol doff on bicarb infusion for now [place] on CKD likely as a result of poor perfusion, ATN secondary to code. Elevated lactate additionally related to the same. IVF 75 cc/hr Hold antihypertensives TArget MAP >65 CT head without any acute intracerebral events. Propofol had been discontinued this morning to assess mental status. With weaning of propofol patient has had no meaningful mental status as of now. Absent gag and corneal reflex today. She is not really responding to any commands. Not making any spontaneous movements. She is overbreathing the ventilator therefore she has been placed on fentanyl and Precedex to alleviate discomfort and keep her calm. All updates discussed with her family. Given that patient received a prolonged CPR lasting at least 30 minutes, currently poor mental status, prognosis is likely to be extremely poor. Her BP dropped down to 60 systolic. It is possible that if we were to extubate and take away pressors and PPM, patient may not survive. Her daughter has currently decided not to escalate care from this point on in keeping with her mother's last known wishes which were not to prolong survivalw ith artificial means, Attestations Medical Necessity Statement*: ongoing admission for post cardiac arrest care, poor mentation, currently on life support Critical Care Time: The high probability of a clinically significant, sudden or life threatening deterioration of the patient's [cardiac, neuro, respiratory ] system(s) required my full and direct attention, intervention and personal management. The critical care time is as shown. This time is in addition to time spent performing any reported procedures but includes the following: [x] Data and vital sign review and interpretation [x] Patient assessment, examination and intervention [x] Documentation [x] Medication orders and management 45 Coding Level of Care Code Acute Financial Quantitative Analyst for Zach Scott Diagnoses Cardiac arrest I46.9 Cardiac arrest with ventricular fibrillation I46.9; I49.01 Acute kidney injury superimposed on CKD N17.9; N18.9
--- NOTE | 2022-08-22 17:27 | PM.PN ---
Subjective Subjective: Patient was seen this morning. Decreased UO. No cough or gag reflex. No events on telemetry Medications: Reviewed: Yes Vitals/I&O/Wt Last Vital Signs Temp 96.4 F L 08/22/22 12:30 Pulse 64 08/22/22 16:30 Resp 35 H 08/22/22 14:20 BP 82/49 08/22/22 16:30 Pulse Ox 98 08/22/22 16:30 O2 Del Method 08/21/22 20:10 FiO2 24 08/22/22 14:20 08/22/22 08/22/22 08/22/22 06:59 14:59 22:59 Intake Total 1127.75 / 3280.750 112.142 / 112.142 26.047 / 138.189 Output Total 50 / 50 Balance 1077.75 / 3230.750 112.142 / 112.142 26.047 / 138.189 Weight last 48 hrs Weight 118 lb Physical Exam Narrative: GENERAL: frail lady intubated and sedated HEENT: Pupils equal round reactive to light. No pallor or icterus. NECK: central trachea, No JVD. Right SC line in place. CARDIOVASCULAR SYSTEM: S1-S2 regular. grade 3/6 diastolic murmur+ in aortic area RESPIRATORY SYSTEM: Chest clear to auscultation anteriorly. ABDOMEN: Soft, nontender and nondistended. EXTREMITIES: No cyanosis or edema. SENIOR SCIENCE CONSULTANT: Patient is intubated and sedated Urinary Catheter Management: [place]: Cath Placed During This Visit: yes Reason for Continuing Indwelling Catheter: Accurate Measurement of Urinary Output in Critically Ill Patients Urinary Catheter Date of Insertion: 08/21/22 Urinary Catheter Time of Insertion: 15:35 Data 08/22/22 00:59 08/22/22 00:59 Micro: Microbiology 08/21/22 14:15 Blood Culture - Preliminary Blood NEGATIVE TO DATE 08/21/22 14:10 Blood Culture - Preliminary Blood NEGATIVE TO DATE 08/21/22 15:30 Gram Stain - Final Sputum - Endotracheal Tube Aspirate Sputum Culture - Preliminary A&P Assessment and plan (1) Cardiac arrest: Presenting rhythm was V fib/V tach per EMS strip unavailable. -Presenting GCS<6 with no absolute contraindication for TTM. However, targeted temperature management could not be set up as usual -No improvement in patient's neurological status. GCS 3T, no cough/gag -Plan to take her off propofol and assess her mentation. Poor overall prognosis. - Plan JOSE R on CKD H/O CVA on plavix s/p PPM CHF HTN Dyslipidemia ?Paroxysmal atrial fibrillation on digoxin and flecainide Anemia Thrombocytopenia Attestations Medical Necessity Statement*: As per primary team Critical Care Time: The high probability of a clinically significant, sudden or life threatening deterioration of the patient's [cardiac] system(s) required my full and direct attention, intervention and personal management. The critical care time is as shown. This time is in addition to time spent performing any reported procedures but includes the following: [x] Data and vital sign review and interpretation [x] Patient assessment, examination and intervention [x] Documentation [x] Medication orders and management Critical Care Time (min): 30 Coding Level of Care Code Acute Nuisance Wildlife Control Operator for Zach Scott Diagnoses Cardiac arrest I46.9
--- NOTE | 2022-08-22 17:31 | PC.NURSE ---
Pt was extubated to comfort care at 1715 with daughter at bedside.
[2022-08-22] MEDS: LORazepam 2 mg/mL INJ 1 mL IVP (18:25)
--- NOTE | 2022-08-22 18:29 | PM.DDS ---
Discharge Providers DDS Date of Admission: 08/21/22 15:55 Date Summary Completed: 08/23/22 Attending Provider at Admission: Marina Rene MD Time of : 17:32 Attending Provider at Discharge: Marina Rene MD Primary Care Provider: Steffany Barahona NP DS Diagnoses Hospital Diagnoses (1) Cardiac arrest: (2) Cardiac arrest with ventricular fibrillation: (3) Acute kidney injury superimposed on CKD: (4) Anoxic brain damage: (5) NSTEMI (non-ST elevated myocardial infarction): Reason for Visit Reason for Visit cardiac arrest Brief History: Ms. Leonardo was a 72-year-old lady who was admitted to the hospital after presenting sudden collapse while getting out of the shower. When EMS found her she was found to have V. fib. She received 9 rounds of adrenaline, had CPR in route, received defibrillation x2 in the field. When she presented to the ER she had ROSC, was intubated and admitted to the ICU. Serial troponins were elevated concerning for NSTEMI for which patient was on heparin drip. Over the next day, patient's mental status continued to decline. She did not have any noted gag reflex or corneal reflex by the second day. She did not follow any meaningful commands. Even with turning off sedation patient had no meaningful mental status. Patient had likely suffered anoxic brain injury as a result of her collapse and prolonged CPR. Due to poor neurological prognosis, family eventually made the decision to proceed with terminal extubation and comfort care only. Patient shortly after withdrawing life support and turning of her pacemaker. She at 1732 on 08/22/2022. Summary Date and Time of Date of : 08/22/22 Time of : 17:32 Discharge Plan Discharge Patient Disposition: At Medical Facility Condition: Stable Prescriptions: No Action oxycodone-acetaminophen 7.5-325 mg tablet 1 tab PO Q6H PRN (Reason: Pain) amlodipine 10 mg tablet 10 mg PO DAILY 90 Days Qty: 90 1RF atorvastatin 20 mg tablet 20 mg PO DAILY 90 Days Qty: 90 1RF buspirone 10 mg tablet 10 mg PO BID 90 Days Qty: 180 1RF clopidogrel 75 mg tablet 75 mg PO DAILY 90 Days Qty: 90 1RF colchicine 0.6 mg tablet 0.6 mg PO DAILY PRN (Reason: gout) Qty: 90 0RF digoxin 125 mcg (0.125 mg) tablet 125 mcg PO DAILY 90 Days Qty: 90 1RF diltiazem HCl 180 mg capsule,extended release 24 hr 180 mg PO DAILY 90 Days Qty: 90 1RF famotidine [Acid Residential Appliance Repair Technician (famotidine)] 20 mg tablet 20 mg PO BID 90 Days Qty: 180 1RF flecainide 50 mg tablet 50 mg PO Q12H 90 Days Qty: 180 1RF hydralazine 25 mg tablet 25 mg PO DAILY 90 Days Qty: 90 1RF methocarbamol 500 mg tablet 500 mg PO BID 90 Days Qty: 180 1RF nortriptyline 75 mg capsule 75 mg PO .HS 90 Days Qty: 90 1RF albuterol sulfate [Ventolin HFA] 90 mcg/actuation HFA aerosol inhaler 2 puff inhalation 6XD PRN (Reason: shortness of breath or wheezing) Qty: 8.5 6RF budesonide-formoterol [Symbicort] 160-4.5 mcg/actuation HFA aerosol inhaler 2 puff inhalation BID Qty: 10.2 6RF furosemide [Lasix] 20 mg tablet 20 mg PO QAM 90 Days Qty: 90 1RF spironolactone 25 mg tablet 25 mg PO DAILY 90 Days Qty: 90 1RF pantoprazole [Protonix] 40 mg tablet,delayed release (DR/EC) 40 mg PO DAILY 90 Days Qty: 90 1RF fluticasone propionate [Flonase Allergy Relief] 50 mcg/actuation spray,suspension 1 spray intranasal Q12H Qty: 16 3RF Rx Instructions: administer into each nostril Linzess 72 mcg capsule 72 mcg PO QAM 90 Days Qty: 90 1RF mllesajhmd-xqbaaawapxvan-oefu 50-325-40 mg tablet 1 tab PO Q4H PRN (Reason: pain) 30 Days Qty: 90 3RF Rx Instructions: 1 TABLET AT ONSET OF HEADACHE,MAY REPEAT IN 4 HOUR.NO MORE THE 2 DOSES 24 HOURS. carvedilol 25 mg tablet 25 mg PO Q12H 90 Days Qty: 180 1RF Rx Instructions: must administer with a meal/food tramadol 100 mg tablet 100 mg PO TID PRN (Reason: pain) 30 Days Qty: 90 0RF ferrous sulfate 325 mg (65 mg iron) tablet 325 mg PO BID 90 Days Qty: 180 1RF Emgality Pen 120 mg/mL pen injector 120 mg SUBCUT Q30D Referrals: Steffany Barahona NP [Primary Care Provider] - Probable Cause of Probable cause of : Cardiac arrest DS Attestations Time Spent in /Discharge Care*: greater than 30 min Quality - AMI: AMI present?: Yes Quality - Stroke: CVA present?: No Quality - VTE: VTE present?: No Coding Level of Care Code Acute Blasting Contract Miner for g Fwd Diagnoses Cardiac arrest I46.9 Cardiac arrest with ventricular fibrillation I46.9; I49.01 Acute kidney injury superimposed on CKD N17.9; N18.9 Anoxic brain damage G93.1 NSTEMI (non-ST elevated myocardial infarction) I21.4
--- NOTE | 2022-08-22 18:30 | PC.NURSE ---
TOD 1732. Dr. Rene at bedside with daughter. home papers signed. [facility] notified and [place] [facility] [place]. Post mortem care done.
== END 2022-08-22 17:32 | disposition expired ==
LOC: ER 15:27 → ICU 15:55
PROVIDERS: Emergency Medicine; Internal Medicine; Admitting Provider Student in an Organized Health Care Education/Training Program; Emergency Provider Family Medicine; PCP Nurse Practitioner Family; Visit Provider Student in an Organized Health Care Education/Training Program
DX: I21.4 Non-ST elevation (NSTEMI) myocardial infarction (principal); N17.0 Acute kidney failure with tubular necrosis; E87.20 Acidosis, unspecified; G93.1 Anoxic brain damage, not elsewhere classified; I13.0 Hypertensive heart and chronic kidney disease with heart failure and stage 1 through stage 4 chronic kidney disease, or unspecified chronic kidney disease; R64 Cachexia; Z68.1 Body mass index [BMI] 19.9 or less, adult; I46.2 Cardiac arrest due to underlying cardiac condition; N18.9 Chronic kidney disease, unspecified; I50.9 Heart failure, unspecified; I49.01 Ventricular fibrillation; I48.0 Paroxysmal atrial fibrillation; I95.89 Other hypotension; E78.5 Hyperlipidemia, unspecified; D63.1 Anemia in chronic kidney disease; D69.6 Thrombocytopenia, unspecified; Z95.0 Presence of cardiac pacemaker; Z86.718 Personal history of other venous thrombosis and embolism; Z79.02 Long term (current) use of antithrombotics/antiplatelets; Z86.73 Personal history of transient ischemic attack (TIA), and cerebral infarction without residual deficits; Z85.79 Personal history of other malignant neoplasms of lymphoid, hematopoietic and related tissues; Z20.822 Contact with and (suspected) exposure to COVID-19; Z20.828 Contact with and (suspected) exposure to other viral communicable diseases; Z51.5 Encounter for palliative care
CPT/HCPCS: 36415; 36416; 36600; 51702; 70450; 71045; 71275; 80051; 80053; 80061; 80162; 81001; 82330; 82803; 82805; 82962; 83605; 83735; 83880; 84484; 85025; 85049; 85610; 85730; 87040; 87070; 87077; 87086; 87186; 87205; 87486; 87581; 87633; 93005; 93306; 94002; 94003; 94799; 96365; 96367; 96375; 99291; C9113; J0282; J1162; J1644; J2060; J2704; J3010; J7030; J7060